=== PATIENT | female | born 1945 | race Caucasian/White ===

== ENCOUNTER 2016-05-24 09:19 | Outpatient (CLI) | payer MEDICARE, OTHER | END 2016-05-24 09:20 | disposition home or self-care (01) | DX: M35.3 Polymyalgia rheumatica (principal); Z79.01 Long term (current) use of anticoagulants ==

== ENCOUNTER 2016-06-19 15:10 | Outpatient (CLI) | payer MEDICARE, OTHER | END 2016-06-19 15:11 | disposition home or self-care (01) | DX: E87.6 Hypokalemia (principal) ==

== ENCOUNTER 2016-09-02 11:42 | Outpatient (CLI) | payer MEDICARE, OTHER | END 2016-09-02 11:43 | disposition home or self-care (01) | DX: M35.3 Polymyalgia rheumatica (principal); Z79.01 Long term (current) use of anticoagulants ==

== ENCOUNTER 2016-10-11 10:27 | Emergency (ER) | payer MEDICARE, OTHER ==
[2016-10-11 10:35] VITALS: BP 133/74
[2016-10-11 11:44] LABS: BASOPHILS % (AUTO) 0.4 %; EOSINOPHILS # (AUTO) 0.1 10^3/uL (0.0-0.7); EOSINOPHILS % (AUTO) 1.1 %; HCT - HEMATOCRIT 35.9 % (37.0-47.0); HGB - HEMOGLOBIN 11.8 g/dL (12.0-16.0); LYMPHOCYTES # (AUTO) 1.5 10^3/uL (1.5-3.5); LYMPHOCYTES % (AUTO) 19.8 %; MEAN CORPUSCULAR HEMOGLOBIN 28.1 pg (27.0-31.0); MEAN CORPUSCULAR HGB CONC 32.9 g/dL (32.0-36.0); MEAN CORPUSCULAR VOLUME 85.5 fL (81.0-99.0); MONOCYTES # (AUTO) 0.6 10^3/uL (0.0-1.0); MONOCYTES % (AUTO) 7.9 %; NEUTROPHILS # (AUTO) 5.4 10^3/uL (1.5-6.6); NEUTROPHILS % (AUTO) 70.8 %; UNCORRECTED WHITE BLOOD COUNT 7.7 x10^3/uL; WHITE BLOOD COUNT 7.7 x10^3/uL (4.8-10.8)
[2016-10-11 11:52] LABS: CALCIUM 9.9 mg/dL (8.5-10.3); CREATININE 1.6 mg/dL (0.4-1.0); POTASSIUM 3.4 mmol/L (3.5-5.0)
--- NOTE | 2016-10-11 11:59 | CT Preliminary Report ---
Exam: CT Head W/O IMPRESSION: Generalized age-related cortical atrophic changes without evidence of acute intracranial abnormality. [facility] SITE ID: [id number]
--- NOTE | 2016-10-11 12:02 | CT Report ---
EXAM: CT HEAD EXAM DATE: 10/11/2016 11:51 AM. CLINICAL HISTORY: Difficulty with speech and diffuse weakness. COMPARISON: None. TECHNIQUE: Multiaxial CT images were obtained from the foramen magnum to the vertex. IV contrast: Non e. Reformats: Coronal. In accordance with CT protocol optimization, one or more of the following dose reduction techniques w ere utilized for this exam: automated exposure control, adjustment of mA and/or KV based on patient s ize, or use of iterative reconstructive technique. FINDINGS: Parenchyma: No intraparenchymal hemorrhage. No evidence of mass, midline shift, or CT findings of acu te infarction. Gallegos-white differentiation is distinct. Extraaxial Spaces: Normal for age. No subdural or epidural collections identified. Ventricles: The ventricles and cortical sulci are enlarged, consistent with age-related tissue loss. Sinuses: Imaged paranasal sinuses, orbits, and mastoids show no significant abnormality. Bones: No evidence of fracture or calvarial defect. Other: Diffuse chronic microangiopathic white matter changes are evident. IMPRESSION: Generalized age-related cortical atrophic changes without evidence of acute intracranial abnormality. [facility] Referring Provider Line: [phone] SITE ID: [id number]
--- NOTE | 2016-10-11 12:05 | ED Physician Documentation ---
History of Present Illness - Stated complaint Stated Complaint: WEAKNESS - Chief complaint Chief Complaint: Neuro - Additonal information Additional information: hx from pt 71 female 5 days of sx started with severe upper mid abd pain and diarrhea after eating lx (her friend at same and got sick too) then states she had a psychedelic experience and saw geometric shapes coming out of her abdomen and was unable to speak clearly (per both slurred and word salad) no focal weakness the speech and hallucinations have cleared the abd pain persists but is improved no blood in diarrhea no NV now diffusely weak all over Review of Systems Constitutional: denies: Fever, Myalgias Throat: denies: Sore throat Cardiac: denies: Chest pain / pressure Respiratory: denies: Dyspnea GI: reports: Abdominal Pain, Diarrhea. 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: Endometriosis Psych: None Musculoskeletal: Osteoarthritis, Osteoporosis, Chronic back pain Other Past Medical History: bladder CA - Present Medications Home Medications: Ambulatory Orders Medication Instructions Recorded Confirmed Carvedilol 6.25 mg PO DAILY 04/02/15 04/02/15 Leucovorin Calcium 15 mg PO Q6HR #30 tablet 04/02/15 10/11/16 Levothyroxine [Synthroid] 25 mcg PO QDAC 04/02/15 04/02/15 Liothyronine [Cytomel] 5 mcg PO QDAC 04/02/15 10/11/16 Lisinopril 10 mg PO BID 04/02/15 04/02/15 Nifedipine 30 mg PO DAILY 04/02/15 04/02/15 Prednisone 04/02/15 04/02/15 Triamterene [Dyrenium] 50 mg PO DAILY 04/02/15 04/02/15 Warfarin [Coumadin] 1 mg PO 1400 04/02/15 04/02/15 - Allergies Allergies/Adverse Reactions: Allergies Allergy/AdvReac Type Severity Reaction Status Date / Time diltiazem Allergy Unknown Unknown Verified 10/11/16 10:36 - Social History Does the pt smoke?: No Smoking Status: Never smoker Does the pt have substance abuse?: No - POLST Patient has POLST: No PD ED PE NORMAL - Vitals Vital signs reviewed: Yes - General General: Alert and oriented X 3 - HEENT HEENT: PERRL - Neck Neck: Supple, no meningeal sign - Cardiac Cardiac: RRR - Respiratory Respiratory: No respiratory distress, Clear bilaterally - Abdomen Abdomen: Other (TTP upper abd without rebound or guarding) - Derm Derm: Normal color - Neuro Neuro: Alert and oriented X 3, forensic structural engineer 2-12 intact, No motor deficit, No sensory deficit, Normal speech, Other (NIHSS zero) Results - Vitals Vitals: Vital Signs - 24 hr 10/11/16 10:30 Temperature 35.9 C L Heart Rate 60 Respiratory 16 Rate Blood Pressure 133/74 H O2 Saturation 97 Oxygen O2 Source Room air - EKG (time done) 1214 Rate: Rate (enter#) (60 - paced) Rhythm: Atrial fibrillation (or flutter - hx a fib) [place]: Normal (paced at 60 ) - Labs Labs: Laboratory Tests 10/11/16 10/11/16 10/11/16 11:28 11:28 11:28 WBC 7.7 RBC 4.20 Hgb 11.8 L Hct 35.9 L MCV 85.5 MCH 28.1 MCHC 32.9 RDW 16.0 H Plt Count 216 MPV 10.0 Neut # 5.4 Lymph # 1.5 Rich # 0.6 Eos # 0.1 Baso # 0.0 Absolute Nucleated RBC 0.00 Nucleated RBCs 0.0 PT 20.8 H INR 1.8 H Sodium 141 Potassium 3.4 L Chloride 104 Carbon Dioxide 26 Anion Gap 11.0 BUN 40 H Creatinine 1.6 H Estimated GFR (MDRD) 32 L Glucose 109 H Calcium 9.9 Troponin I Urine Color Urine Clarity Urine pH Ur Specific [place] Urine Protein Urine Glucose (UA) Urine Ketones Urine Occult Blood Urine Nitrite Urine Bilirubin Urine Urobilinogen Ur Leukocyte Esterase Ur Microscopic Review Urine Culture Comments 10/11/16 10/11/16 11:28 11:55 WBC RBC Hgb Hct MCV MCH MCHC RDW Plt Count MPV Neut # Lymph # Rich # Eos # Baso # Absolute Nucleated RBC Nucleated RBCs PT INR Sodium Potassium Chloride Carbon Dioxide Anion Gap BUN Creatinine Estimated GFR (MDRD) Glucose Calcium Troponin I < 0.04 Urine Color YELLOW Urine Clarity CLEAR Urine pH 6.5 Ur Specific [place] 1.015 Urine Protein NEGATIVE Urine Glucose (UA) NEGATIVE Urine Ketones NEGATIVE Urine Occult Blood TRACE-INTA Urine Nitrite NEGATIVE Urine Bilirubin NEGATIVE Urine Urobilinogen 0.2 (NORMAL) Ur Leukocyte Esterase NEGATIVE Ur Microscopic Review NOT INDICATED Urine Culture Comments NOT INDICATED - Rads (name of study) CT abd pelvis Radiology: See rad report (no acute process) CTH Radiology: See rad report (no acute) PD MEDICAL DECISION MAKING - ED course ED course: 71 f with very atypical neuro sx - not class or typical or a TIA - and assocuated with abd pain and diarrhea after eating lox CTH neg a fib but with PPM and INR 1.8 so CVA less likely nl neuro exam now given atypical neuro sx of psychedelic hallucinations 5 d ago do not feel emergent echo and carotid imaging and admit for serial neuro exams is necessary at this time - feel reasonable to dc on her Coumadin to fup with her PMD for a recheck and further work up as an ouptpt if PMD feels appropriate re abd pain, CT abd pelvis neg and pt had a firm BM in the ER Departure - Departure Disposition: 01 Home, Self Care Clinical Impression: Neurological deficit, transient Abdominal pain Qualifiers: Abdominal location: upper abdomen, unspecified Qualified Code(s): R10.10 - Upper abdominal pain, unspecified Condition: Good Instructions: ED Abdominal Pain Unkn Cause Follow-Up: Sanjeev Coleman MD [Primary Care Provider] - Comments: All your tests came back fine The CT of your head did not show any bleeding tumors or stroke The CT of your abdomen did not show any infections, stones or perforations And your blood work came back mostly all fine except that you kidney function has worsened since the last time it was checked - please follow up with your PMD about that. Since the speech problems and hallucinations have resolved and your abdominal pain and diarrhea are improving, i think it is OK for you to go home and to follow up with your PMD for a recheck and consideration of an ultrasound or your heart and carotid arteries as an outpatient Please return if worse in any way And please follow up with your PMD to recheck your blood pressure - it was elevated today
[2016-10-11 12:17] LABS: BILIRUBIN,URINE NEGATIVE (NEGATIVE); PH,URINE 6.5 PH (5.0-7.5)
[2016-10-11 12:21] LABS: UA CHARGE (STRIP ONLY) YES; UR CULTURE IF IND NOT INDICATED
[2016-10-11 12:21] LABS: INR 1.8 (0.8-1.2); PT - PROTHROMBIN TIME 20.8 secs (9.9-12.6)
--- NOTE | 2016-10-11 12:50 | CT Preliminary Report ---
Exam: CT Abdomen/Pelvis W/O IMPRESSION: 1. No bowel obstruction or inflammatory process associated with the bowel. 2. No free air or fluid in the abdomen or pelvis. 3. The appendix images normally. [facility] SITE ID: [id number]
--- NOTE | 2016-10-11 12:53 | CT Report ---
EXAM: CT ABDOMEN AND PELVIS (CT KUB) EXAM DATE: 10/11/2016 12:32 PM. CLINICAL HISTORY: Severe abd pain. COMPARISONS: None. TECHNIQUE: Routine axial helical CT imaging was performed through the abdomen and pelvis without IV c ontrast. Reconstructions: Coronal and sagittal. In accordance with CT protocol optimization, one or more of the following dose reduction techniques w ere utilized for this exam: automated exposure control, adjustment of mA and/or KV based on patient s ize, or use of iterative reconstructive technique. FINDINGS: Lung Bases: Unremarkable. Right Kidney/Ureter: No stones, hydronephrosis, or hydroureter. No perinephric fat stranding. Left Kidney/Ureter: No stones, hydronephrosis, or hydroureter. No perinephric fat stranding. Other Solid Organs: Noncontrast images of the solid organs are grossly unremarkable. Gallbladder/Bile Ducts: Unremarkable. Peritoneal Cavity: No bowel obstruction. No inflammatory process associated with the bowel. The appen luciana images normally. No free air or fluid in the abdomen or pelvis. Pelvic Organs: No bladder stones or wall thickening. Noncontrast images of the visualized pelvic orga ns are unremarkable. Vasculature: Unremarkable. Other: Compression deformities of the L1, L3 and L4 vertebral bodies appear chronic in nature. Degene rative disk disease throughout the lumbar spine. IMPRESSION: 1. No bowel obstruction or inflammatory process associated with the bowel. 2. No free air or fluid in the abdomen or pelvis. 3. The appendix images normally. [facility] Referring Provider Line: [phone] SITE ID: [id number]
== END 2016-10-11 14:33 | disposition home or self-care (01) ==
LOC: ED 10:27
DX: R29.818 Other symptoms and signs involving the nervous system (principal); R10.11 Right upper quadrant pain; I48.91 Unspecified atrial fibrillation; Z79.01 Long term (current) use of anticoagulants; R94.31 Abnormal electrocardiogram [ECG] [EKG]; I10 Essential (primary) hypertension; G47.30 Sleep apnea, unspecified; E03.9 Hypothyroidism, unspecified; M19.90 Unspecified osteoarthritis, unspecified site; Z85.51 Personal history of malignant neoplasm of bladder
CPT/HCPCS: 36415; 70450; 74176; 80048; 81001; 81003; 84484; 85025; 85610; 87045; 87046; 87086; 93005; 93010; 99283; 99284

== ENCOUNTER 2016-11-01 14:15 | Outpatient (CLI) | payer MEDICARE, OTHER ==
[2016-11-01 15:02] LABS: BUN - BLOOD UREA NITROGEN 33 mg/dL (6-20); CALCIUM 9.8 mg/dL (8.5-10.3); CARBON DIOXIDE - CO2 28 mmol/L (21-32); CHLORIDE 102 mmol/L (101-111); CREATININE 1.3 mg/dL (0.4-1.0); GFR - MDRD 40 (>89); GLUCOSE 103 mg/dL (70-100); POTASSIUM 3.3 mmol/L (3.5-5.0); SODIUM 139 mmol/L (135-145)
== END 2016-11-01 14:16 | disposition home or self-care (01) ==
LOC: LAB 14:15
PROVIDERS: ATTEND Family Medicine
DX: M35.3 Polymyalgia rheumatica (principal)
CPT/HCPCS: 36415; 80048; 85610; 85651; 86140

== ENCOUNTER 2016-11-25 11:05 | Outpatient (CLI) | payer MEDICARE, OTHER | END 2016-11-25 11:06 | disposition home or self-care (01) | LOC: LAB 11:05 | PROVIDERS: ATTEND Family Medicine | DX: Z79.01 Long term (current) use of anticoagulants (principal) | CPT/HCPCS: 85610 ==

== ENCOUNTER 2016-12-23 09:28 | Outpatient (CLI) | payer MEDICARE, OTHER ==
[2016-12-23 10:27] LABS: INR 1.3 (0.8-1.2); PT - PROTHROMBIN TIME 14.3 secs (9.9-12.6)
[2016-12-23 10:36] LABS: BUN - BLOOD UREA NITROGEN 32 mg/dL (6-20); CALCIUM 9.9 mg/dL (8.5-10.3); CARBON DIOXIDE - CO2 30 mmol/L (21-32); CHLORIDE 103 mmol/L (101-111); CREATININE 1.3 mg/dL (0.4-1.0); GFR - MDRD 40 (>89); GLUCOSE 92 mg/dL (70-100); POTASSIUM 3.2 mmol/L (3.5-5.0); SODIUM 141 mmol/L (135-145)
== END 2016-12-23 09:29 | disposition home or self-care (01) ==
LOC: LAB 09:28
PROVIDERS: ATTEND Internal Medicine Rheumatology
DX: Z79.01 Long term (current) use of anticoagulants (principal); M35.3 Polymyalgia rheumatica
CPT/HCPCS: 36415; 80048; 85610; 85651; 86140

== ENCOUNTER 2017-02-14 08:53 | Outpatient (CLI) | payer MEDICARE, OTHER ==
[2017-02-14 09:44] LABS: BASOPHILS # (AUTO) 0.1 10^3/uL (0.0-0.1); BASOPHILS % (AUTO) 1.1 %; EOSINOPHILS # (AUTO) 0.2 10^3/uL (0.0-0.7); EOSINOPHILS % (AUTO) 2.4 %; HGB - HEMOGLOBIN 12.3 g/dL (12.0-16.0); LYMPHOCYTES # (AUTO) 1.9 10^3/uL (1.5-3.5); LYMPHOCYTES % (AUTO) 28.9 %; MEAN CORPUSCULAR HGB CONC 32.3 g/dL (32.0-36.0); MEAN CORPUSCULAR VOLUME 86.5 fL (81.0-99.0); MEAN PLATELET VOLUME 9.8 fL (7.9-10.8); MONOCYTES # (AUTO) 0.8 10^3/uL (0.0-1.0); MONOCYTES % (AUTO) 12.8 %; NEUTROPHILS # (AUTO) 3.5 10^3/uL (1.5-6.6); NEUTROPHILS % (AUTO) 54.8 %; RED BLOOD COUNT 4.39 10^6/uL (4.20-5.40); RED CELL DISTRIBUTION WIDTH 15.7 % (12.0-15.0); UNCORRECTED WHITE BLOOD COUNT 6.4 x10^3/uL; WHITE BLOOD COUNT 6.4 x10^3/uL (4.8-10.8)
[2017-02-14 09:54] LABS: CALCIUM 9.2 mg/dL (8.5-10.3); CREATININE 1.3 mg/dL (0.4-1.0); PHOSPHORUS 2.5 mg/dL (2.5-4.6); POTASSIUM 3.3 mmol/L (3.5-5.0)
== END 2017-02-14 08:54 | disposition home or self-care (01) ==
LOC: RT 08:53
PROVIDERS: ATTEND Urology
DX: Z01.818 Encounter for other preprocedural examination (principal); C67.9 Malignant neoplasm of bladder, unspecified; N39.0 Urinary tract infection, site not specified
CPT/HCPCS: 36415; 80069; 85025; 87086; 93005

== ENCOUNTER 2017-03-27 10:51 | Outpatient (CLI) | payer MEDICARE, OTHER ==
[2017-03-27 11:33] LABS: BUN - BLOOD UREA NITROGEN 30 mg/dL (6-20); CALCIUM 9.2 mg/dL (8.5-10.3); CARBON DIOXIDE - CO2 29 mmol/L (21-32); CHLORIDE 104 mmol/L (101-111); CREATININE 1.2 mg/dL (0.4-1.0); GFR - MDRD 44 (>89); GLUCOSE 92 mg/dL (70-100); POTASSIUM 3.1 mmol/L (3.5-5.0); SODIUM 141 mmol/L (135-145)
== END 2017-03-27 10:52 | disposition home or self-care (01) ==
LOC: LAB 10:51
PROVIDERS: ATTEND Family Medicine
DX: Z79.01 Long term (current) use of anticoagulants (principal); M35.3 Polymyalgia rheumatica
CPT/HCPCS: 36415; 80048; 85610; 85651; 86140

== ENCOUNTER 2017-08-07 10:34 | Outpatient (CLI) | payer MEDICARE, OTHER | END 2017-08-07 10:35 | disposition home or self-care (01) | LOC: LAB 10:34 | PROVIDERS: ATTEND Family Medicine | DX: Z79.01 Long term (current) use of anticoagulants (principal) | CPT/HCPCS: 85610 ==

== ENCOUNTER 2017-08-14 09:27 | Outpatient (CLI) | payer MEDICARE, OTHER ==
[2017-08-14 10:02] LABS: BASOPHILS % (AUTO) 0.6 %; EOSINOPHILS # (AUTO) 0.2 10^3/uL (0.0-0.7); EOSINOPHILS % (AUTO) 2.3 %; HGB - HEMOGLOBIN 11.3 g/dL (12.0-16.0); LYMPHOCYTES # (AUTO) 1.9 10^3/uL (1.5-3.5); LYMPHOCYTES % (AUTO) 28.9 %; MEAN CORPUSCULAR HEMOGLOBIN 28.1 pg (27.0-31.0); MEAN CORPUSCULAR HGB CONC 32.6 g/dL (32.0-36.0); MEAN PLATELET VOLUME 9.8 fL (7.9-10.8); MONOCYTES # (AUTO) 0.8 10^3/uL (0.0-1.0); MONOCYTES % (AUTO) 12.4 %; NEUTROPHILS # (AUTO) 3.7 10^3/uL (1.5-6.6); NEUTROPHILS % (AUTO) 55.8 %; PLT - PLATELET COUNT 188 10^3/uL (130-450); RED BLOOD COUNT 4.04 10^6/uL (4.20-5.40); RED CELL DISTRIBUTION WIDTH 16.9 % (12.0-15.0); WHITE BLOOD COUNT 6.6 x10^3/uL (4.8-10.8)
[2017-08-14 10:19] LABS: ALBUMIN 3.5 g/dL (3.2-5.5); ALKALINE PHOSPHATASE 46 IU/L (42-121); ALT ALANINE AMINOTRANSFERASE 18 IU/L (10-60); AST ASPARTATE AMINOTRANSFERASE 21 IU/L (10-42); BILIRUBIN,TOTAL 0.5 mg/dL (0.2-1.0); BUN - BLOOD UREA NITROGEN 28 mg/dL (6-20); CALCIUM 9.6 mg/dL (8.5-10.3); CARBON DIOXIDE - CO2 28 mmol/L (21-32); CHLORIDE 104 mmol/L (101-111); CHOLESTEROL 191 mg/dL; CREATININE 1.3 mg/dL (0.4-1.0); GFR - MDRD 40 (>89); GLUCOSE 94 mg/dL (70-100); HDL CHOLESTEROL 48 mg/dL; LDL CHOLESTEROL,CALCULATED 119 mg/dL; LDL/HDL RATIO 2.5 (<4.4); SODIUM 142 mmol/L (135-145); TOTAL PROTEIN 6.9 g/dL (6.7-8.2); VLDL CHOLESTEROL 24 mg/dL
[2017-08-14 10:53] LABS: THYROID STIMULATING HORMONE < 0.08 uIU/mL (0.34-5.60)
[2017-08-14 11:27] LABS: FREE T4 (FREE THYROXINE) 1.56 ng/dL (0.58-1.64)
== END 2017-08-14 09:28 | disposition home or self-care (01) ==
LOC: LAB 09:27
PROVIDERS: ATTEND Internal Medicine Cardiovascular Disease
DX: M35.3 Polymyalgia rheumatica (principal); R00.1 Bradycardia, unspecified; E78.2 Mixed hyperlipidemia
CPT/HCPCS: 36415; 80048; 80053; 80061; 83721; 84439; 84443; 85025; 85610; 85651; 86140

== ENCOUNTER 2017-09-29 09:11 | Outpatient (CLI) | payer MEDICARE, OTHER ==
[2017-09-29 10:07] LABS: BUN - BLOOD UREA NITROGEN 35 mg/dL (6-20); CARBON DIOXIDE - CO2 26 mmol/L (21-32); CHLORIDE 105 mmol/L (101-111); CREATININE 1.4 mg/dL (0.4-1.0); GFR - MDRD 37 (>89); GLUCOSE 87 mg/dL (70-100); SODIUM 137 mmol/L (135-145)
[2017-09-29 10:12] LABS: CRP - C-REACTIVE PROTEIN < 1.0 mg/dL (0-1.0)
== END 2017-09-29 09:12 | disposition home or self-care (01) ==
LOC: LAB 09:11
PROVIDERS: ATTEND Internal Medicine Rheumatology
DX: Z79.01 Long term (current) use of anticoagulants (principal); M35.3 Polymyalgia rheumatica
CPT/HCPCS: 36415; 80048; 85610; 85651; 86140

== ENCOUNTER 2017-10-20 12:01 | Outpatient (CLI) | END 2017-10-20 12:02 | disposition home or self-care (01) ==

== ENCOUNTER 2018-02-12 09:40 | Outpatient (CLI) | payer MEDICARE, OTHER ==
[2018-02-12 10:56] LABS: BUN - BLOOD UREA NITROGEN 35 mg/dL (6-20); CALCIUM 9.5 mg/dL (8.5-10.3); CARBON DIOXIDE - CO2 24 mmol/L (21-32); CHLORIDE 108 mmol/L (101-111); CREATININE 1.3 mg/dL (0.4-1.0); GFR - MDRD 40 (>89); GLUCOSE 95 mg/dL (70-100); SODIUM 141 mmol/L (135-145)
[2018-02-12 11:08] LABS: CRP - C-REACTIVE PROTEIN < 1.0 mg/dL (0-1.0)
== END 2018-02-12 09:41 | disposition home or self-care (01) ==
LOC: LAB 09:40
PROVIDERS: ATTEND Internal Medicine Rheumatology
DX: M35.3 Polymyalgia rheumatica (principal); M81.0 Age-related osteoporosis without current pathological fracture; Z79.01 Long term (current) use of anticoagulants; I48.91 Unspecified atrial fibrillation
CPT/HCPCS: 36415; 80048; 82306; 85610; 85651; 86140

== ENCOUNTER 2018-03-12 14:24 | Outpatient (CLI) | payer MEDICARE, OTHER ==
[2018-03-12 14:56] LABS: INR 2.6 (0.8-1.2); PT - PROTHROMBIN TIME 28.7 secs (9.9-12.6)
[2018-03-12 15:05] LABS: CALCIUM 8.6 mg/dL (8.5-10.3); CREATININE 1.5 mg/dL (0.4-1.0)
== END 2018-03-12 14:25 | disposition home or self-care (01) ==
LOC: LAB 14:24
PROVIDERS: ATTEND Internal Medicine Rheumatology
DX: I48.91 Unspecified atrial fibrillation (principal); Z79.01 Long term (current) use of anticoagulants
CPT/HCPCS: 36415; 80048; 85610; 85651; 86140

== ENCOUNTER 2018-10-16 08:54 | Outpatient (CLI) | payer MEDICARE, OTHER | END 2018-10-16 08:55 | disposition home or self-care (01) | LOC: LAB 08:54 | PROVIDERS: ATTEND Family Medicine | DX: Z79.01 Long term (current) use of anticoagulants (principal); I48.91 Unspecified atrial fibrillation | CPT/HCPCS: 85610 ==

== ENCOUNTER 2019-01-07 11:54 | Outpatient (CLI) | payer MEDICARE, OTHER | END 2019-01-07 11:55 | disposition home or self-care (01) | LOC: DI 11:54 | PROVIDERS: ATTEND Nurse Practitioner Adult Health | DX: I48.2 Chronic atrial fibrillation (principal); R06.02 Shortness of breath; I51.7 Cardiomegaly | CPT/HCPCS: 93306 ==

== ENCOUNTER 2019-01-15 13:54 | Outpatient (CLI) | payer MEDICARE, OTHER ==
[2019-01-15 15:17] LABS: HGB - HEMOGLOBIN 11.8 g/dL (12.0-16.0); MEAN CORPUSCULAR HGB CONC 31.5 g/dL (32.0-36.0); MEAN CORPUSCULAR VOLUME 88.9 fL (81.0-99.0); MEAN PLATELET VOLUME 11.8 fL (7.9-10.8); RED BLOOD COUNT 4.22 10^6/uL (4.20-5.40); RED CELL DISTRIBUTION WIDTH 15.9 % (12.0-15.0); WHITE BLOOD COUNT 7.5 x10^3/uL (4.8-10.8)
[2019-01-15 15:23] LABS: ALBUMIN 3.8 g/dL (3.2-5.5); CALCIUM 9.3 mg/dL (8.5-10.3); CREATININE 1.7 mg/dL (0.4-1.0); PHOSPHORUS 3.6 mg/dL (2.5-4.6); URIC ACID 7.7 mg/dL (2.6-7.2)
[2019-01-15 15:28] LABS: BUN - BLOOD UREA NITROGEN 51 mg/dL (6-20); CALCIUM 9.3 mg/dL (8.5-10.3); CARBON DIOXIDE - CO2 23 mmol/L (21-32); CHLORIDE 109 mmol/L (101-111); CREATININE 1.8 mg/dL (0.4-1.0); GFR - MDRD 27 (>89); GLUCOSE 99 mg/dL (70-100); SODIUM 141 mmol/L (135-145)
[2019-01-15 15:30] LABS: CRP - C-REACTIVE PROTEIN < 1.0 mg/dL (0-1.0)
[2019-01-20 12:11] LABS: ANA SCREEN NEGATIVE (NEGATIVE)
== END 2019-01-15 13:55 | disposition home or self-care (01) ==
LOC: LAB 13:54
PROVIDERS: ATTEND Internal Medicine Nephrology
DX: N17.9 Acute kidney failure, unspecified (principal); N18.3 Chronic kidney disease, stage 3 (moderate); R31.9 Hematuria, unspecified; M35.3 Polymyalgia rheumatica; I48.91 Unspecified atrial fibrillation; Z79.01 Long term (current) use of anticoagulants
CPT/HCPCS: 36415; 80048; 80069; 81599; 83970; 84100; 84550; 85027; 85610; 85651; 86038; 86140

== ENCOUNTER 2019-01-23 16:10 | Outpatient (CLI) | payer MEDICARE, OTHER ==
--- NOTE | 2019-01-25 09:37 | Ultrasound Report ---
Reason: ACUTE KIDNEY FAILURE, CKD STAGE III Procedure Date: 01/23/2019 Accession Number: [id number] / [id number] Procedure: US - Retroperitoneal CPT Code: FULL RESULT: EXAM: RENAL ULTRASOUND EXAM DATE: 01/23/2019 05:22 PM. CLINICAL HISTORY: ACUTE KIDNEY FAILURE, CKD STAGE III. COMPARISON: None. TECHNIQUE: Real-time scanning was performed with static images obtained. FINDINGS: Right Kidney: 9.4 x 5.3 x 3.6 cm. Slightly echogenic renal parenchyma. No suspicious mass or hydronephrosis. There is an 8 mm maximum diameter central right renal cyst of no significance. Left Kidney: 10.0 x 6.0 x 5.2 cm. Slightly echogenic renal parenchyma. No suspicious mass or hydronephrosis. There is a 7 mm maximal diameter lateral renal cyst of no clinical significance. Bladder: Bilateral jets seen. The prevoid bladder volume was 98.3 cc. The postvoid bladder volume was 3.6 cc. Other: There is a cluster of benign-appearing inferior right hepatic cysts of no clinical significance with aggregate maximal diameter of 2.2 cm. IMPRESSION: 1. Slightly echogenic renal parenchyma without significant atrophy, suspicious mass, or hydronephrosis. 2. Unremarkable bladder. [facility]
== END 2019-01-23 16:11 | disposition home or self-care (01) ==
LOC: DI 16:10
PROVIDERS: ATTEND Internal Medicine Nephrology
DX: N17.9 Acute kidney failure, unspecified (principal); N18.3 Chronic kidney disease, stage 3 (moderate)
CPT/HCPCS: 76770

== ENCOUNTER 2019-02-05 13:34 | Outpatient (CLI) | payer MEDICARE, OTHER | END 2019-02-05 13:35 | disposition home or self-care (01) | LOC: LAB 13:34 | PROVIDERS: ATTEND Family Medicine | DX: Z79.01 Long term (current) use of anticoagulants (principal); I48.91 Unspecified atrial fibrillation | CPT/HCPCS: 85610 ==

== ENCOUNTER 2019-02-25 11:33 | Outpatient (CLI) | payer MEDICARE, OTHER | END 2019-02-25 11:34 | disposition home or self-care (01) | LOC: LAB 11:33 | PROVIDERS: ATTEND Family Medicine | DX: Z79.01 Long term (current) use of anticoagulants (principal); I48.91 Unspecified atrial fibrillation | CPT/HCPCS: 85610 ==

== ENCOUNTER 2019-08-23 11:16 | Outpatient (CLI) | payer MEDICARE, OTHER ==
[2019-08-23 11:39] LABS: INR 2.3 (0.8-1.2); PT - PROTHROMBIN TIME 25.5 secs (9.9-12.6)
[2019-08-23 11:51] LABS: CALCIUM 8.8 mg/dL (8.5-10.3); CREATININE 1.2 mg/dL (0.4-1.0)
== END 2019-08-23 11:17 | disposition home or self-care (01) ==
LOC: LAB 11:16
PROVIDERS: ATTEND Internal Medicine
DX: I48.91 Unspecified atrial fibrillation (principal); M35.3 Polymyalgia rheumatica
CPT/HCPCS: 36415; 80048; 85610; 85651; 86140

== ENCOUNTER 2020-01-07 11:53 | Outpatient (CLI) | payer MEDICARE, OTHER | END 2020-01-07 11:54 | disposition home or self-care (01) | LOC: LAB 11:53 | PROVIDERS: ATTEND Internal Medicine | DX: I48.91 Unspecified atrial fibrillation (principal) | CPT/HCPCS: 85610 ==

== ENCOUNTER 2020-01-20 09:52 | Outpatient (CLI) | payer MEDICARE, OTHER ==
--- NOTE | 2020-01-20 11:19 | SLEEP CARE CONSULTATION ---
Information from patient questionnaire entered by Jennifer White. I have reviewed and concur with the information entered by Jennifer White. This document represents the service I personally performed and the decisions made by me, Manisha Bess ARNP. History of Present Illness Service Date and Time: 01/20/2020 09 Reason for Visit: New patient, Previously diagnosed sleep apnea, sleep apnea on CPAP therapy Chief Complaint: reports: Observed pauses in breathing, Fatigue. denies: Unrefreshed sleep, Snoring Date of Onset: since 2011 Usual bedtime: 10:30 pm Time it takes to fall asleep: between 15-60 minutes Snores at night: Yes Observed to quit breathing while asleep: Yes Sleeps alone due to snoring: No Number of times waking at night: 2-3 Reasons for waking at night: reports: Bathroom (mostly). denies: Choking, Snoring, Gasping for air Toss, Turn, or Twitch while sleeping: Yes (a little) Recalls having dreams: Yes Usually gets out of bed at: 7 am Feels refreshed in the morning: Yes (half the time) Morning headache: No Sleepy or fatigued during the day: Yes Ever fallen asleep while driving: No Takes day naps: No Dreams during day naps: No Prior sleep studies: Yes Year and Where: around 2011 - [facility] in [place], [place] Additional HPI information: ALAN FELIZ was diagnosed to have severe, AHI 49.5 with a farrukh oxygen saturation of 73%, obstructive sleep apnea-hypopnea syndrome who comes in today with spouse to establish care she is on CPAP therapy. - Parasomnia Symptoms Ever been unable to move upon waking from sleep: No Walks in sleep: No Talks in sleep: Yes (occasionally) Ever acted out dreams in sleep: No Ever felt weak in the knees when startled or emotional: No Bothered by creepy, crawly, restless sensations in legs: No Problems with memory or concentration: Yes CPAP Compliance Data - Data Reviewed with Patient Average duration of nightly device use: 5 hours 46 minutes Compliance rate %: 7 Current pressure setting (cmH2O): 16-20 Average residual AHI: 18.8 Central apnea: 5.0 Obstructive apnea: 5.4 Average large leak: 24.7 Compliance data discussion: Using [facility], cannot get supplies. She uses a full face mask. She has not been able to change her mask cushion for at least a year. She may have an old mask if needed. Subjective Missed days of use due to: reports: mask issues Patient concerns: reports: mask discomfort (she will take it off due to too warm and mask leak noise), mask leak noise, other (headgear is too tight or too loose). denies: aerophagia, air blowing in eyes, condensation in mask/hose, nasal congestion, dry mouth, nose, throat, epistaxis Observed to snore while using device: No Current pressure setting perceived as: comfortable On therapy, patient: reports: sleeping better (when she uses the CPAP), awaken ing more refreshed. denies: being more awake and alert during the day, more rested overall, drowsiness while driving Initial [place] Sleepiness Scale score: 4 (in 2019) Past Medical History Past Medical History: reports: Hypertension, Arthritis, Arrythmia (Atrial fibrillation on warfarin), Hypothyroidism, Fibromyalgia, Attention deficit, Other (hammer toes (can't be treated)). 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 Patient is and lives in [place]. Have you smoked in the past 12 months: No Alcohol use: Yes Alcohol amount and frequency: very infrequently Caffeine use: Yes Caffeine amount and frequency: coffee every morning Family History Family history of sleep disordered breathing: No Family Hx Sleep Apnea: Mother: Snoring Allergies and Home Medications Drug allergies reviewed: Yes (diltiazem) Home medication list reviewed: Yes (will have her bring in next visit) Review of Systems Weight loss over past 5 years: 5 Cardiovascular: reports: high blood pressure, irregular heart rate or pulse. denies: palpitations, chest pain, leg or foot swelling Respiratory: reports: shortness of breath Gastrointestinal: reports: diarrhea (sometimes). denies: heartburn, difficulty swallowing Neurological: denies: headaches (hx of severe migraines, not much anymore), seizure, head trauma, speech dysfunction, gait or balance problems, fainting or unconsciousness Psychiatric: denies: Attention Deficit Hyperactivity, anxiety, depression, mood disorder, claustrophobia Ear/Nose/Throat: reports: tonsillectomy. denies: nasal congestion, sinus problems, nose bleeds, dry mouth/throat, injury to nose, wisdom teeth removed Endocrine: reports: thyroid disease, sluggishness, other (take thyroid medication) Musculoskeletal: reports: joint pain, back pain Physical Exam Blood Pressure: 140/75 Cuff size: regular Heart Rate: 60 O2 Saturation: 97 Height: 4 ft 9 in Weight: 162 lb Body Mass Index: 35.0 BMI Classification: Obese Neck circumference: 14.2 (inches) HEENT: No craniofacial malformation Nostrils: patent to airflow Turbinates: normal Septum: midline Mouth and throat: narrow oropharynx Soft palate: normal Hard palate: normal Uvula: normal Uvula visualization: 50% Mallampati Class II Tongue: normal in size Tonsils: absent bilaterally Chin and jaw: normal size and position Neck: normal w/o lymphadenopathy or thyromegaly Heart: regular rate and rhythm Lungs: clear bilaterally Impression and Plan 1. Obstructive Sleep Apnea-Hypopnea Syndrome, severe, with poor treatment compliance and poor apnea control. On CPAP therapy, there is improved sleep quality and feels more rested overall. Patient has not been using CPAP due to mask leak noise and mask being uncomfortable. She states sometimes she just gets very hot in the mask and takes it off. I advised her to reduce the temperature in her sleeping room. She was also advised that she can adjust the heated hose or humidity to make the temperature more comfortable. She also needs a new mask and headgear since she thinks it has been over a year since she received new supplies. She was also advised that mask leaks can be reduced by washing mask daily and changing mask cushions more frequently to improve mask seal and comfort. Patient unable to get supplies since DME supplier no longer able to get her supplies. For patient supply concerns another DME can be used. I will have my coordinator of health services inform of DME options. A DWO prescription will then be made. Patient advised to contact this office if further supply problems. Patient's apnea severity and rationale for treatment to reduce apnea, improve sleep quality and reduce cardiovascular and cerebrovascular events was reviewed. I also reviewed the benefit of consistent device use of CPAP for hypertension, cardiac disease, and arrhythmia. Continue auto CPAP pressure at 16-20 cm H2O. Notify me if snoring with the mask or feeling that the pressure is too much or too little. Attempt to lose weight. Transfer DME and update supplies Return for follow-up in 1-2 months, or sooner if concerns arise. Time Spent with Patient (minutes): 40
[2020-01-20 11:20] VITALS: BP 140/75
== END 2020-01-20 09:53 | disposition home or self-care (01) ==
LOC: SC 09:52
PROVIDERS: ATTEND Nurse Practitioner Family
DX: G47.33 Obstructive sleep apnea (adult) (pediatric) (principal); E66.9 Obesity, unspecified; Z68.35 Body mass index [BMI] 35.0-35.9, adult
CPT/HCPCS: 99204; G0463; 99212

== ENCOUNTER 2020-02-01 10:20 | Outpatient (CLI) | payer MEDICARE, OTHER | END 2020-02-01 10:21 | disposition home or self-care (01) | LOC: DI 10:20 | PROVIDERS: ATTEND Nurse Practitioner Adult Health | DX: I51.7 Cardiomegaly (principal); I48.91 Unspecified atrial fibrillation | CPT/HCPCS: 93306 ==

== ENCOUNTER 2020-02-10 11:54 | Outpatient (CLI) | payer MEDICARE, OTHER ==
[2020-02-10 12:32] LABS: BASOPHILS % (AUTO) 0.4 %; EOSINOPHILS % (AUTO) 0.4 %; HGB - HEMOGLOBIN 12.6 g/dL (12.0-16.0); MEAN CORPUSCULAR HEMOGLOBIN 28.7 pg (27.0-31.0); MEAN CORPUSCULAR HGB CONC 31.7 g/dL (32.0-36.0); MEAN CORPUSCULAR VOLUME 90.7 fL (81.0-99.0); MEAN PLATELET VOLUME 11.2 fL (7.9-10.8); MONOCYTES % (AUTO) 11.2 %; NEUTROPHILS # (AUTO) 5.9 10^3/uL (1.5-6.6); NEUTROPHILS % (AUTO) 65.7 %; PLT - PLATELET COUNT 245 10^3/uL (130-450); RED BLOOD COUNT 4.39 10^6/uL (4.20-5.40); RED CELL DISTRIBUTION WIDTH 16.7 % (12.0-15.0); WHITE BLOOD COUNT 9.1 x10^3/uL (4.8-10.8)
[2020-02-10 12:39] LABS: INR 1.5 (0.8-1.2); PT - PROTHROMBIN TIME 15.8 secs (9.9-12.6)
[2020-02-10 12:44] LABS: GLUCOSE, URINE (UA) NEGATIVE (NEGATIVE); KETONES,URINE (UA) 15 mg/dL (NEGATIVE); LEUKOCYTE ESTERASE, URINE TRACE (NEGATIVE); NITRITE,URINE NEGATIVE (NEGATIVE); OCCULT BLOOD,URINE NEGATIVE (NEGATIVE); PROTEIN,URINE 30 mg/dL (NEGATIVE); UROBILINOGEN,URINE 1 (NORMAL) E.U./dL (NORMAL)
[2020-02-10 12:48] LABS: ALBUMIN 3.8 g/dL (3.2-5.5); CALCIUM 9.4 mg/dL (8.5-10.3); CREATININE 1.3 mg/dL (0.4-1.0); PHOSPHORUS 2.4 mg/dL (2.5-4.6); URIC ACID 6.3 mg/dL (2.6-7.2)
[2020-02-10 12:52] LABS: CALCIUM 9.4 mg/dL (8.5-10.3); CHOL/HDL RATIO 3.5 (<4.4); CHOLESTEROL 214 mg/dL; CREATININE 1.3 mg/dL (0.4-1.0); CRP - C-REACTIVE PROTEIN 8.3 mg/dL (0-1.0); HDL CHOLESTEROL 61 mg/dL; LDL CHOLESTEROL,CALCULATED 136 mg/dL; LDL/HDL RATIO 2.2 (<4.4); VLDL CHOLESTEROL 17 mg/dL
[2020-02-10 12:58] LABS: BACTERIA,URINE Few /HPF (None Seen); BILIRUBIN,URINE NEGATIVE (NEGATIVE); CASTS, URINE 26-50 Hyaline Casts /LPF; CLARITY,URINE CLEAR (CLEAR); ICTOTEST,URINE NEGATIVE; RBC,URINE None Seen /HPF (0-5); SQUAMOUS EPITHELIAL CELL,UR FEW Squamous (<= Few)
[2020-02-10 13:44] LABS: CREATININE,URINE 553.3 mg/dL
== END 2020-02-10 11:55 | disposition home or self-care (01) ==
LOC: LAB 11:54
PROVIDERS: ATTEND Internal Medicine Nephrology
DX: E78.2 Mixed hyperlipidemia (principal); I12.9 Hypertensive chronic kidney disease with stage 1 through stage 4 chronic kidney disease, or unspecified chronic kidney disease; N18.30 Chronic kidney disease, stage 3 unspecified; I48.20 Chronic atrial fibrillation, unspecified; M35.3 Polymyalgia rheumatica
CPT/HCPCS: 36415; 80048; 80061; 80069; 81001; 82570; 83721; 83970; 84156; 84443; 84550; 85025; 85610; 85651; 86140; 87086

== ENCOUNTER 2020-03-28 08:56 | Outpatient (CLI) | payer MEDICARE, OTHER ==
[2020-03-28 09:23] LABS: BASOPHILS # (AUTO) 0.1 10^3/uL (0.0-0.1); BASOPHILS % (AUTO) 0.7 %; EOSINOPHILS # (AUTO) 0.1 10^3/uL (0.0-0.7); EOSINOPHILS % (AUTO) 1.8 %; HGB - HEMOGLOBIN 13.6 g/dL (12.0-16.0); LYMPHOCYTES # (AUTO) 2.1 10^3/uL (1.5-3.5); LYMPHOCYTES % (AUTO) 28.2 %; MEAN CORPUSCULAR HEMOGLOBIN 28.6 pg (27.0-31.0); MEAN CORPUSCULAR VOLUME 92.2 fL (81.0-99.0); MONOCYTES # (AUTO) 0.8 10^3/uL (0.0-1.0); MONOCYTES % (AUTO) 10.3 %; NEUTROPHILS # (AUTO) 4.3 10^3/uL (1.5-6.6); NEUTROPHILS % (AUTO) 58.6 %; PLT - PLATELET COUNT 239 10^3/uL (130-450); RED BLOOD COUNT 4.76 10^6/uL (4.20-5.40); RED CELL DISTRIBUTION WIDTH 16.5 % (12.0-15.0); WHITE BLOOD COUNT 7.4 x10^3/uL (4.8-10.8)
[2020-03-28 09:39] LABS: MAGNESIUM 1.9 mg/dL (1.7-2.8); PHOSPHORUS 2.9 mg/dL (2.5-4.6); URIC ACID 6.7 mg/dL (2.6-7.2)
[2020-03-28 09:40] LABS: ALBUMIN 3.9 g/dL (3.2-5.5); BILIRUBIN,TOTAL 0.7 mg/dL (0.2-1.0); CREATININE 1.3 mg/dL (0.4-1.0); TOTAL PROTEIN 7.7 g/dL (6.7-8.2)
[2020-03-28 10:43] LABS: MICROALBUM/CREATININE RATIO,UR 28.6 ug/mg (<30.0); MICROALBUMIN,URINE 9.4 mg/dL (0-300.0)
== END 2020-03-28 08:57 | disposition home or self-care (01) ==
LOC: LAB 08:56
PROVIDERS: ATTEND Internal Medicine Rheumatology
DX: N18.32 Chronic kidney disease, stage 3b (principal); I12.9 Hypertensive chronic kidney disease with stage 1 through stage 4 chronic kidney disease, or unspecified chronic kidney disease; M81.0 Age-related osteoporosis without current pathological fracture
CPT/HCPCS: 80053; 82043; 82306; 82570; 83735; 83970; 84100; 84550; 85025

== ENCOUNTER 2020-05-10 12:45 | Outpatient (CLI) | payer MEDICARE, OTHER ==
--- OUTSIDE RECORDS SUMMARY | 2020-05-10 12:50 | EXTERNAL MEDICAL SUMMARY RPT | Continuity of Care Document ---
:1945 Demographics Phone Unavailable Preferred Language Unknown Marital Status Unknown Confucianism Affiliation Unknown Race Unknown Ethnic Group Unknown Author Organization [facility] Address [address] [phone] Phone Care Team Providers Name Role Phone Coleman Unavailable Unavailable Problems date description facility 2020-02-10 11:54 ESSENTIAL (PRIMARY) HYPERTENSION [facility] 2020-02-10 11:54 CHRONIC ATRIAL FIBRILLATION, [facility] UNSPECIFIED 2020-02-10 11:54 UNSPECIFIED ATRIAL FIBRILLATION [facility] 2020-02-10 11:54 CHRONIC KIDNEY DISEASE, STAGE 3 [facility] UNSPECIFIED 2020-03-28 08:56 AGE-RELATED OSTEOPOROSIS W/O [facility] CURRENT PATHOLOGICAL FRACTURE 2020-03-28 08:56 CHRONIC KIDNEY DISEASE, STAGE 3B [facility] Allergies date description facility NO KNOWN ENVIRONMENTAL ALLERGIES [facility] No Known Drug Allergies [facility] diltiazem [facility] Results Social History date description facility [phone]
--- NOTE | 2020-05-10 13:57 | SLEEP CARE CONSULTATION ---
Information from patient questionnaire entered by Jennifer White. I have reviewed and concur with the information entered by Jennifer White. This document represents the service I personally performed and the decisions made by me, Manisha Bess ARNP. History of Present Illness Service Date and Time: 05/10/2020 1245 Previous diagnosis: Severe, Obstructive Sleep Apnea-Hypopnea Syndrome AHI: 49.5 (in 2011) Reason for follow up: three month Accompanied by: Spouse Equipment type: CPAP Equipment obtained from: [facility] (in [place]; getting supplies as needed) Mask style: Full face Backup mask available: Yes Prior sleep studies: Yes Year and Where: 2011 - [facility] in [place], [place] Type of Sleep Study: Polysomnography (Split-night) HPI additional information: ALAN FELIZ was diagnosed to have severe, AHI 49.5, obstructive sleep apnea- hypopnea syndrome and returned today with her for CPAP therapy three month follow-up. Sleep Study - Results Prior sleep studies: Yes Year and Where: around 2011 - [facility] in [place], [place] CPAP Compliance Data Compliance data discussion: We were unable to get compliance information off her card because it was broken. A new card was given to her to have her put in her machine to download her information and then bring the card back into the office so we may have her information. Subjective Patient concerns: reports: mask discomfort (to tight sometimes), mask leak noise (sometimes). denies: aerophagia, air blowing in eyes, condensation in mask/hose, nasal congestion, dry mouth, nose, throat, epistaxis, other Observed to snore while using device: No Current pressure setting perceived as: comfortable On therapy, patient: reports: sleeping better, awakening more refreshed, being more awake and alert during the day, more rested overall. denies: drowsiness while driving Initial [place] Sleepiness Scale score: 4 (in 2019) Current [place] Sleepiness Scale score: 5 Allergies and Home Medications Drug allergies reviewed: Yes (diltiazem) Home medication list reviewed: Yes (no changes) Review of Systems Review of systems same as previous: Yes (no changes) Physical Exam Heart Rate: 60 O2 Saturation: 96 Height: 4 ft 9 in Weight: 159 lb Body Mass Index: 34.4 BMI Classification: Obese Impression and Plan 1. Obstructive Sleep Apnea-Hypopnea Syndrome, severe, with unknown treatment compliance and unknown apnea control. On CPAP therapy, the patient has better sleep quality and is more rested overall. Patient was instructed to put the new card into her machine to download her compliance information and bring this back to the office. Her follow up will be determined by this information. Patient had some mask discomfort because she was tightening her worn our headgear to keep mask on her face. This has improved since she got a new set of headgear. She states she gets lines on face with some reddening when she has to tighten her mask and the lines do not go away very quickly. I advised patient that she can obtain some headgear padding to help reduce the lines on her face. She can ask her DME, just look online for these products or make one herself. She states she has a friend who uses something like this and will ask her about it. Patient and voiced understanding of teaching information and agreement with plan of care. Patient's apnea severity and rationale for treatment to reduce apnea, improve sleep quality and reduce cardiovascular and cerebrovascular events was reviewed. I also reviewed the benefit of consistent device use of CPAP for hypertension, cardiac disease, and arrhythmia. * Continue auto CPAP pressure at 16-20 cmH2O * Patient to bring in compliance card once she has downloaded information onto new card * Notify me if snoring with mask or feeling that the pressure is too much or too little * Call this office if any problems using CPAP * Return for follow up in 1-2 months depending on compliance information, or sooner if concerns arise Counseling Topics: Spare mask Visit Type: In Office Time Spent with Patient (minutes): 29 Provider Statement: I spent 100% of the Face to Face Visit with the patient with greater than 50% spent counseling the patient and coordination of care.
== END 2020-05-10 12:46 | disposition home or self-care (01) ==
LOC: SC 12:45
PROVIDERS: ATTEND Nurse Practitioner Family
DX: G47.33 Obstructive sleep apnea (adult) (pediatric) (principal); E66.9 Obesity, unspecified; Z68.34 Body mass index [BMI] 34.0-34.9, adult
CPT/HCPCS: 99213; G0463; 99212

== ENCOUNTER 2020-05-17 08:00 | Outpatient (CLI) | payer MEDICARE, OTHER ==
[2020-05-17 14:32] LABS: BUN - BLOOD UREA NITROGEN 30 mg/dL (6-20); CALCIUM 9.4 mg/dL (8.5-10.3); CARBON DIOXIDE - CO2 28 mmol/L (21-32); CHLORIDE 101 mmol/L (101-111); CREATININE 1.4 mg/dL (0.4-1.0); CRP - C-REACTIVE PROTEIN < 1.0 mg/dL (0-1.0); GLUCOSE 99 mg/dL (70-100)
== END 2020-05-17 23:59 | disposition home or self-care (01) ==
LOC: LAB 08:00
PROVIDERS: ATTEND Internal Medicine
DX: I48.91 Unspecified atrial fibrillation (principal); M35.3 Polymyalgia rheumatica
CPT/HCPCS: 36415; 80048; 85610; 85651; 86140

== ENCOUNTER 2020-06-06 13:07 | Outpatient (CLI) | payer MEDICARE, OTHER ==
--- NOTE | 2020-06-06 13:52 | SLEEP CARE CONSULTATION ---
Information from patient questionnaire entered by Jennifer White. I have reviewed and concur with the information entered by Jennifer White. This document represents the service I personally performed and the decisions made by , Manisha Bess ARNP. History of Present Illness Service Date and Time: 06/06/2020 1307 Previous diagnosis: Severe, Obstructive Sleep Apnea-Hypopnea Syndrome AHI: 49.5 (in 2011) Reason for follow up: one month Equipment type: CPAP Equipment obtained from: [facility] (in [place]; getting supplies as needed) Mask style: Full face Backup mask available: No (will need to keep old mask when replaced) Prior sleep studies: Yes Year and Where: around 2011 - [facility] in [place], [place] Type of Sleep Study: Polysomnography (Split-night) HPI additional information: ALAN FELIZ was diagnosed to have severe, AHI 49.5, obstructive sleep apnea- hypopnea syndrome and returned today with spouse for CPAP therapy one month follow-up. CPAP Compliance Data - Data Reviewed with Patient Average duration of nightly device use: 4 hours 20 minutes 5 seconds Compliance rate %: 50 Current pressure setting (cmH2O): 19-20 Average residual AHI: 17.2 Central apnea: 2.6 Obstructive apnea: 3.3 Average large leak: 1 hour 41 mins 13 secs Subjective Missed days of use due to: reports: mask issues Patient concerns: reports: air blowing in eyes, mask leak noise. denies: aerophagia, mask discomfort, condensation in mask/hose, nasal congestion, dry mouth, nose, throat, epistaxis, other Observed to snore while using device: No Current pressure setting perceived as: too high On therapy, patient: reports: sleeping better, awakening more refreshed, being more awake and alert during the day, more rested overall. denies: drowsiness while driving Initial [place] Sleepiness Scale score: 4 (in 2019) Current [place] Sleepiness Scale score: 4 Allergies and Home Medications Home medication list reviewed: Yes (no changes) Review of Systems Review of systems same as previous: Yes (no changes) Physical Exam Heart Rate: 59 O2 Saturation: 98 Height: 4 ft 9 in Weight: 166 lb Body Mass Index: 35.9 BMI Classification: Obese Impression and Plan 1. Obstructive Sleep Apnea-Hypopnea Syndrome, severe, with fair treatment compliance and fair apnea control with an elevated residual AHI. On CPAP therapy, the patient has better sleep quality and is more rested overall. Patient also feels the pressure is too much at the onset of treatment but it is okay once she has her mask on securely. The patients pressure will be changed to autoCPAP 15-20 cmH20 for elevation of residual AHI. Patient advised to contact me if pressure change is uncomfortable so that it can be adjusted. Goals for apnea control discussed. Patient's apnea severity and rationale for treatment to reduce apnea, improve sleep quality and reduce cardiovascular and cerebrovascular events was reviewed. I also reviewed the benefit of consistent device use of CPAP for hypertension, cardiac disease, and arrhythmia. * Changeauto CPAP pressure to 15-20 cmH2O * Notify me if snoring with mask or feeling that the pressure is too much or too little * Attempt to lose weight * Call this office if any problems using CPAP * Return for follow up in 1 month, or sooner if concerns arise Counseling Topics: Spare mask, Weight loss health impact Visit Type: In Office Time Spent with Patient (minutes): 29 Provider Statement: I spent 100% of the Face to Face Visit with the patient with greater than 50% spent counseling the patient and coordination of care.
== END 2020-06-06 13:08 | disposition home or self-care (01) ==
LOC: SC 13:07
PROVIDERS: ATTEND Nurse Practitioner Family
DX: G47.33 Obstructive sleep apnea (adult) (pediatric) (principal); E66.9 Obesity, unspecified; Z68.35 Body mass index [BMI] 35.0-35.9, adult
CPT/HCPCS: 99213; G0463; 99212

== ENCOUNTER 2020-07-07 12:52 | Outpatient (CLI) | payer MEDICARE, OTHER ==
--- NOTE | 2020-07-07 13:23 | SLEEP CARE CONSULTATION ---
Information from patient questionnaire entered by Jennifer White. I have reviewed and concur with the information entered by Jennifer White. This document represents the service I personally performed and the decisions made by , Manisha Bess ARNP. History of Present Illness Service Date and Time: 07/07/2020 1252 Previous diagnosis: Severe, Obstructive Sleep Apnea-Hypopnea Syndrome AHI: 49.5 (in 2011) Reason for follow up: one month (with pressure change) Equipment type: CPAP Equipment obtained from: [facility] (in [place]; getting supplies as needed) Mask style: Full face Backup mask available: Yes (old mask) Last cushion change: 1 month Prior sleep studies: Yes Year and Where: around 2011 - [facility] in [place], [place] Type of Sleep Study: Polysomnography (Split-night) HPI additional information: ALAN FELIZ was diagnosed to have severe, AHI 49.5, obstructive sleep apnea- hypopnea syndrome and returned today with spouse for CPAP therapy one month pressure change follow-up. CPAP Compliance Data - Data Reviewed with Patient Average duration of nightly device use: 5 hours 33 minutes Compliance rate %: 76.7 Current pressure setting (cmH2O): 15-20 Humidity settin Heated hose settin Average residual AHI: 16.6 Central apnea: 3.0 Obstructive apnea: 3.4 Hypopnea: 10.2 Average large leak: 2 hours Subjective Missed days of use due to: reports: mask issues Patient concerns: reports: mask leak noise (once in a while). denies: aerophagia, mask discomfort, air blowing in eyes, condensation in mask/hose, nasal congestion, dry mouth, nose, throat, epistaxis, other Observed to snore while using device: Yes Current pressure setting perceived as: comfortable On therapy, patient: reports: sleeping better, awakening more refreshed, being more awake and alert during the day, more rested overall. denies: drowsiness while driving Initial [place] Sleepiness Scale score: 4 (in 2019) Current [place] Sleepiness Scale score: 3 Allergies and Home Medications Home medication list reviewed: Yes (no changes) Review of Systems Review of systems same as previous: Yes (no changes) Physical Exam Heart Rate: 82 O2 Saturation: 96 Height: 4 ft 9 in Weight: 162 lb Body Mass Index: 35.0 BMI Classification: Obese Impression and Plan 1. Obstructive Sleep Apnea-Hypopnea Syndrome, severe, with fair treatment compliance and fair apnea control with elevated residual AHI. On CPAP therapy, the patient has better sleep quality and is more rested overall. I reviewed the chart and the last split night PSG showed good apnea control at 10 cmH2O. The patients pressure will be changed to autoCPAP 10-18 cmH20 for elevation of residual AHI. Patient advised to contact me if pressure change is uncomfortable so that it can be adjusted. Goals for apnea control discussed. She is going to [place] [employer] and will be back in August. I will have her follow up in 3 months after she returns. She voiced understanding. Patient's apnea severity and rationale for treatment to reduce apnea, improve sleep quality and reduce cardiovascular and cerebrovascular events was reviewed. I also reviewed the benefit of consistent device use of CPAP for hypertension, cardiac disease, and arrhythmia. * Change auto CPAP pressure to 10-18 cmH2O * Notify me if snoring with mask or feeling that the pressure is too much or too little * Attempt to lose weight * Call this office if any problems using CPAP * Return for follow up in 3 months, or sooner if concerns arise Counseling Topics: Spare mask, Weight loss health impact Visit Type: In Office Time Spent with Patient (minutes): 24 Provider Statement: I spent 100% of the Face to Face Visit with the patient with greater than 50% spent counseling the patient and coordination of care.
== END 2020-07-07 12:53 | disposition home or self-care (01) ==
LOC: SC 12:52
PROVIDERS: ATTEND Nurse Practitioner Family
DX: G47.33 Obstructive sleep apnea (adult) (pediatric) (principal); E66.9 Obesity, unspecified; Z68.35 Body mass index [BMI] 35.0-35.9, adult
CPT/HCPCS: 99213; G0463; 99212

== ENCOUNTER 2020-09-19 13:54 | Outpatient (CLI) | payer MEDICARE, OTHER ==
[2020-09-19 14:24] LABS: CALCIUM 8.8 mg/dL (8.5-10.3); CREATININE 1.5 mg/dL (0.4-1.0); CRP - C-REACTIVE PROTEIN 12.4 mg/dL (0-1.0); POTASSIUM 3.6 mmol/L (3.5-5.0)
== END 2020-09-19 13:55 | disposition home or self-care (01) ==
LOC: LAB 13:54
PROVIDERS: ATTEND Internal Medicine Rheumatology
DX: M35.3 Polymyalgia rheumatica (principal)
CPT/HCPCS: 36415; 80048; 85651; 86140

== ENCOUNTER 2020-09-26 09:09 | Outpatient (CLI) | payer MEDICARE, OTHER ==
[2020-09-26 09:24] LABS: HGB - HEMOGLOBIN 13.5 g/dL (12.0-16.0); MEAN CORPUSCULAR HEMOGLOBIN 28.3 pg (27.0-31.0); MEAN CORPUSCULAR HGB CONC 31.4 g/dL (32.0-36.0); MEAN CORPUSCULAR VOLUME 90.1 fL (81.0-99.0); RED BLOOD COUNT 4.77 10^6/uL (4.20-5.40); RED CELL DISTRIBUTION WIDTH 15.9 % (12.0-15.0); WHITE BLOOD COUNT 7.1 x10^3/uL (4.8-10.8)
[2020-09-26 09:44] LABS: CALCIUM 9.8 mg/dL (8.5-10.3); CREATININE 1.3 mg/dL (0.4-1.0); CRP - C-REACTIVE PROTEIN 1.2 mg/dL (0-1.0); POTASSIUM 3.7 mmol/L (3.5-5.0)
[2020-09-26 09:45] LABS: ALBUMIN 4.1 g/dL (3.2-5.5); CALCIUM 9.9 mg/dL (8.5-10.3); CREATININE 1.4 mg/dL (0.4-1.0); PHOSPHORUS 2.9 mg/dL (2.5-4.6); POTASSIUM 3.7 mmol/L (3.5-5.0); URIC ACID 8.2 mg/dL (2.6-7.2)
[2020-09-26 10:32] LABS: PROTEIN/CREATININE RATIO,URINE 0.1 (<=0.2)
== END 2020-09-26 09:10 | disposition home or self-care (01) ==
LOC: LAB 09:09
PROVIDERS: ATTEND Internal Medicine Rheumatology
DX: M35.3 Polymyalgia rheumatica (principal); N18.32 Chronic kidney disease, stage 3b
CPT/HCPCS: 36415; 80048; 80069; 82570; 83970; 84156; 84550; 85027; 85651; 86140

== ENCOUNTER 2020-10-13 13:03 | Outpatient (CLI) | payer MEDICARE, OTHER ==
--- NOTE | 2020-10-13 13:44 | SLEEP CARE CONSULTATION ---
Information from patient questionnaire entered by Jennifer White. I have reviewed and concur with the information entered by Jennifer White. This document represents the service I personally performed and the decisions made by , Manisha Bess ARNP. History of Present Illness Service Date and Time: 10/13/2020 1303 Previous diagnosis: Severe, Obstructive Sleep Apnea-Hypopnea Syndrome AHI: 49.5 (in 2011) Reason for follow up: three month Equipment type: CPAP Equipment obtained from: [facility] (in [place]; getting supplies as needed) Mask style: Full face Backup mask available: Yes (old mask) Last cushion change: no idea Prior sleep studies: Yes Year and Where: 2012 - [facility] in [place], [place] Type of Sleep Study: Polysomnography (Split-night) HPI additional information: ALAN FELIZ was diagnosed to have severe, AHI 49.5, obstructive sleep apnea- hypopnea syndrome and returned today with stepson for CPAP therapy 3 month with pressure change follow-up. CPAP Compliance Data - Data Reviewed with Patient Average duration of nightly device use: 4 hr 45 min Compliance rate %: 30 Current pressure setting (cmH2O): 10-18 Humidity settin Heated hose settin Average residual AHI: 27.8 Average large leak: 41 min 54 sec Subjective Missed days of use due to: reports: family emergency ( in June) Patient concerns: denies: aerophagia, mask discomfort, air blowing in eyes, mask leak noise, condensation in mask/hose, nasal congestion, dry mouth, nose, throat, epistaxis, other Observed to snore while using device: No Current pressure setting perceived as: comfortable On therapy, patient: reports: sleeping better, awakening more refreshed, being more awake and alert during the day, more rested overall. denies: drowsiness while driving Initial [place] Sleepiness Scale score: 4 (in 2019) Current [place] Sleepiness Scale score: 4 Allergies and Home Medications Home medication list reviewed: Yes (She stopped warfarin and started Eliquis) Review of Systems Review of systems same as previous: Yes (no changes) Physical Exam Heart Rate: 60 O2 Saturation: 92 Height: 4 ft 9 in Weight: 151 lb Body Mass Index: 32.6 BMI Classification: Obese Impression and Plan 1. Obstructive Sleep Apnea-Hypopnea Syndrome, severe, with poor treatment compliance and poor apnea control with elevated residual AHI. On CPAP therapy, the patient has better sleep quality and is more rested overall. The patients pressure will be changed to autoCPAP 15-20 cmH20 for elevation of residual AHI. Patient advised to contact me if pressure change is uncomfortable so that it can be adjusted. Goals for apnea control discussed. I will order a titration study to determine appropriate pressure settings for patient since she is not well controlled on higher CPAP ranges. She may need a BIPAP. Patient agreeable to have a titration study and to increasing her pressure back to previous setting that controlled her apneas better. Patient's apnea severity and rationale for treatment to reduce apnea, improve sleep quality and reduce cardiovascular and cerebrovascular events was reviewed. I also reviewed the benefit of consistent device use of CPAP for hypertension, cardiac disease, and arrhythmia. * Titration study * Change auto CPAP pressure to 15-20 cmH2O * Notify me if snoring with mask or feeling that the pressure is too much or too little * Attempt to lose weight * Call this office if any problems using CPAP * Return for follow up after titration study, or sooner if concerns arise Counseling Topics: Weight loss health impact Visit Type: In Office Time Spent with Patient (minutes): 23 Provider Statement: I spent 100% of the Face to Face Visit with the patient with greater than 50% spent counseling the patient and coordination of care.
== END 2020-10-13 13:04 | disposition home or self-care (01) ==
LOC: SC 13:03
PROVIDERS: ATTEND Nurse Practitioner Family
DX: G47.33 Obstructive sleep apnea (adult) (pediatric) (principal); E66.9 Obesity, unspecified; Z68.32 Body mass index [BMI] 32.0-32.9, adult
CPT/HCPCS: 99213; G0463; 99212

== ENCOUNTER 2021-02-06 10:32 | Outpatient (CLI) | payer MEDICARE, OTHER ==
[2021-02-06 11:12] VITALS: BP 130/82
--- NOTE | 2021-02-06 11:12 | SLEEP CARE CONSULTATION ---
Information from patient questionnaire entered by Macrina Farrar. I have reviewed and concur with the information entered by Macrina Farrar. This document represents the service I personally performed and the decisions made by me, Manisha Bess ARNP. History of Present Illness Service Date and Time: 02/06/2021 1032 Previous diagnosis: Severe, Obstructive Sleep Apnea-Hypopnea Syndrome AHI: 49.5 (in 2011) Reason for follow up: three month (issues using CPAP) Equipment type: CPAP Equipment obtained from: [facility] (in [place]; getting supplies as needed) Mask style: Full face Mask brand: Respironics (Dreamwear) Backup mask available: No (needs supplies) Last cushion change: 3 months Prior sleep studies: Yes Year and Where: 2011 - [facility] in [place], [place] Type of Sleep Study: Polysomnography (Split-night) HPI additional information: ALAN FELIZ was diagnosed to have severe, AHI 49.5, obstructive sleep apnea- hypopnea syndrome and returned today for CPAP therapy three month with issues using CPAP follow-up. Sleep Study - Results Type of Sleep Study: Polysomnography (Split-night) Prior sleep studies: Yes Year and Where: 2012 - [facility] in [place], [place] CPAP Compliance Data - Data Reviewed with Patient Average duration of nightly device use: 4 hours 44 minutes Compliance rate %: 10 Current pressure setting (cmH2O): 15-20 Humidity settin Heated hose settin Average residual AHI: 20.3 Average large leak: 41 minutes 9 seconds Subjective Missed days of use due to: reports: family emergency (Her ), mask issues (straps too tight; takes off because it annoys her) Patient concerns: reports: mask discomfort, air blowing in eyes, mask leak noise. denies: aerophagia, condensation in mask/hose, nasal congestion, dry mouth, nose, throat, epistaxis, other Observed to snore while using device: No Current pressure setting perceived as: comfortable On therapy, patient: reports: other (doesn't really feel a difference). denies: drowsiness while driving Initial [place] Sleepiness Scale score: 4 (in 2019) Current [place] Sleepiness Scale score: 2 Allergies and Home Medications Home medication list reviewed: Yes (Eliquis) Review of Systems Review of systems same as previous: No (skin Suni removal surgery-more coming) Physical Exam Blood Pressure: 130/82 Cuff size: long Heart Rate: 60 O2 Saturation: 97 Height: 4 ft 9 in Weight: 142 lb Body Mass Index: 30.7 BMI Classification: Obese Impression and Plan 1. Obstructive Sleep Apnea-Hypopnea Syndrome, severe, with poor treatment compliance and fair apnea control. Patient states she does not know the difference from using she feels she is using it sufficiently but I discussed with her about her compliance is low. She states she can use it when she is down in [place] because it is too hot. She states she will be leaving for [place] at the end of March. Patient states she is not having any issues using the machine or with her mask other than some air blowing into her eyes and some mask leak noises. She states the mask seems to be softer but she has not changed it in about 3 months. Mask leaks can be reduced by washing mask daily and changing mask cushions more frequently to improve mask seal and comfort. Patient voiced understanding. I informed the patient that [employer] has a recall on several devices like the patients machine. Patient was encouraged to register their device online with [employer] for the recall to see if their device is affected. If their device is affected they should start a claim. Patient denies any black particles seen in machine or hoses, any unusual odors coming from device. Patient has not experienced any physical symptoms such as upper airway irritation, headache, skin or eye irritation, asthma, nausea/vomiting, difficulty breathing or chest pain. Patient informed that they may use an inline CPAP filter that they can obtain online to reduce chance of any particles being inhaled or ingested. We discussed thoroughly the health risks of not using the CPAP versus continuing use with the filter in place. If patient is not able to sleep due to waking up choking, gasping for air or other respiratory distress that they may decide to continue using it until it is either replaced or repaired. Patient voiced understanding and agreement with plan. Patient's apnea severity and rationale for treatment to reduce apnea, improve sleep quality and reduce cardiovascular and cerebrovascular events was reviewed. I also reviewed the benefit of consistent device use of CPAP for hypertension, cardiac disease and arrhythmia. * Continue auto CPAP pressure at 15-20 cmH2O * Notify me if snoring with mask or feeling that the pressure is too much or too little * Attempt to lose weight * Call this office if any problems using CPAP * Return for follow up in 1-2 months, or sooner if concerns arise Counseling Topics: Spare mask, Weight loss health impact Visit Type: In Office Time Spent with Patient (minutes): 29 Provider Statement: I spent 100% of the Face to Face Visit with the patient with greater than 50% spent counseling the patient and coordination of care.
== END 2021-02-06 10:33 | disposition home or self-care (01) ==
LOC: SC 10:32
PROVIDERS: ATTEND Nurse Practitioner Family
DX: G47.33 Obstructive sleep apnea (adult) (pediatric) (principal); E66.9 Obesity, unspecified; Z68.30 Body mass index [BMI] 30.0-30.9, adult
CPT/HCPCS: 99213; G0463; 99212

== ENCOUNTER 2021-03-30 14:23 | Outpatient (CLI) | payer MEDICARE, OTHER ==
[2021-03-30 15:11] LABS: BUN - BLOOD UREA NITROGEN 26 mg/dL (6-20); CALCIUM 9.9 mg/dL (8.5-10.3); CARBON DIOXIDE - CO2 29 mmol/L (21-32); CHLORIDE 99 mmol/L (101-111); CREATININE 1.4 mg/dL (0.4-1.0); GFR - MDRD 36 (>89); GLUCOSE 105 mg/dL (70-100); POTASSIUM 3.9 mmol/L (3.5-5.0); SODIUM 141 mmol/L (135-145)
[2021-03-30 15:12] LABS: CRP - C-REACTIVE PROTEIN < 1.0 mg/dL (0-1.0)
== END 2021-03-30 14:24 | disposition home or self-care (01) ==
LOC: LAB 14:23
PROVIDERS: ATTEND Internal Medicine Rheumatology
DX: M35.3 Polymyalgia rheumatica (principal); Z79.52 Long term (current) use of systemic steroids
CPT/HCPCS: 36415; 80048; 85651; 86140

== ENCOUNTER 2021-09-07 10:06 | Outpatient (CLI) | payer MEDICARE, OTHER ==
[2021-09-07 10:32] LABS: BASOPHILS % (AUTO) 0.5 %; EOSINOPHILS # (AUTO) 0.1 10^3/uL (0.0-0.7); EOSINOPHILS % (AUTO) 1.7 %; HCT - HEMATOCRIT 39.6 % (37.0-47.0); HGB - HEMOGLOBIN 12.5 g/dL (12.0-16.0); LYMPHOCYTES # (AUTO) 1.6 10^3/uL (1.5-3.5); LYMPHOCYTES % (AUTO) 27.3 %; MEAN CORPUSCULAR HEMOGLOBIN 28.7 pg (27.0-31.0); MEAN CORPUSCULAR HGB CONC 31.6 g/dL (32.0-36.0); MEAN PLATELET VOLUME 11.4 fL (7.9-10.8); MONOCYTES # (AUTO) 0.6 10^3/uL (0.0-1.0); MONOCYTES % (AUTO) 9.7 %; NEUTROPHILS # (AUTO) 3.6 10^3/uL (1.5-6.6); NEUTROPHILS % (AUTO) 60.6 %; PLT - PLATELET COUNT 201 10^3/uL (130-450); RED BLOOD COUNT 4.35 10^6/uL (4.20-5.40); RED CELL DISTRIBUTION WIDTH 15.9 % (12.0-15.0)
[2021-09-07 10:49] LABS: ALBUMIN 3.9 g/dL (3.2-5.5); ALBUMIN/GLOBULIN RATIO 1.1 (1.0-2.2); ALKALINE PHOSPHATASE 44 IU/L (42-121); ALT ALANINE AMINOTRANSFERASE 14 IU/L (10-60); AST ASPARTATE AMINOTRANSFERASE 23 IU/L (10-42); BILIRUBIN,TOTAL 0.8 mg/dL (0.2-1.0); BUN - BLOOD UREA NITROGEN 29 mg/dL (6-20); CALCIUM 9.1 mg/dL (8.5-10.3); CARBON DIOXIDE - CO2 26 mmol/L (21-32); CHLORIDE 105 mmol/L (101-111); CREATININE 1.2 mg/dL (0.4-1.0); GFR - MDRD 43 (>89); GLUCOSE 95 mg/dL (70-100); POTASSIUM 3.5 mmol/L (3.5-5.0); SODIUM 143 mmol/L (135-145); TOTAL PROTEIN 7.4 g/dL (6.7-8.2)
[2021-09-07 10:50] LABS: CRP - C-REACTIVE PROTEIN < 1.0 mg/dL (0-1.0)
[2021-09-07 11:09] LABS: THYROID STIMULATING HORMONE 1.57 uIU/mL (0.34-5.60)
== END 2021-09-07 10:07 | disposition home or self-care (01) ==
LOC: LAB 10:06
PROVIDERS: ATTEND Internal Medicine Rheumatology
DX: E03.9 Hypothyroidism, unspecified (principal); N18.9 Chronic kidney disease, unspecified; Z13.1 Encounter for screening for diabetes mellitus; M35.3 Polymyalgia rheumatica
CPT/HCPCS: 36415; 80053; 84443; 85025; 85651; 86140

== ENCOUNTER 2022-04-12 10:28 | Outpatient (CLI) | payer MEDICARE, OTHER ==
[2022-04-12 11:35] LABS: BUN - BLOOD UREA NITROGEN 35 mg/dL (6-20); CALCIUM 9.6 mg/dL (8.5-10.3); CARBON DIOXIDE - CO2 28 mmol/L (21-32); CHLORIDE 101 mmol/L (101-111); CREATININE 1.4 mg/dL (0.4-1.0); GFR - MDRD 36 (>89); GLUCOSE 97 mg/dL (70-100); POTASSIUM 3.8 mmol/L (3.5-5.0); SODIUM 141 mmol/L (135-145)
[2022-04-12 11:38] LABS: CRP - C-REACTIVE PROTEIN < 1.0 mg/dL (0-1.0)
== END 2022-04-12 10:29 | disposition home or self-care (01) ==
LOC: LAB 10:28
PROVIDERS: ATTEND Internal Medicine Rheumatology
DX: E55.9 Vitamin D deficiency, unspecified (principal); M35.3 Polymyalgia rheumatica; Z51.81 Encounter for therapeutic drug level monitoring; Z79.899 Other long term (current) drug therapy; Z79.52 Long term (current) use of systemic steroids
CPT/HCPCS: 36415; 80048; 82306; 86140

== ENCOUNTER 2022-07-18 16:27 | Outpatient (CLI) | payer MEDICARE, OTHER | END 2022-07-18 23:59 | disposition critical access hospital (66) | LOC: EMS 16:27 | DX: R55 Syncope and collapse (principal); R42 Dizziness and giddiness; R41.89 Other symptoms and signs involving cognitive functions and awareness; R26.2 Difficulty in walking, not elsewhere classified | CPT/HCPCS: A0425; A0429 ==

== ENCOUNTER 2022-07-18 16:42 | Emergency (ER) | payer MEDICARE, OTHER ==
--- NOTE | 2022-07-18 16:55 | ED Physician Documentation ---
History of Present Illness - Stated complaint Stated Complaint: SYNCOPAL EPISODE - Chief complaint Chief Complaint: Neuro - History obtained from History obtained from: Patient - Additonal information Additional information: 77-year-old woman with history of atrial fibrillation, pacemaker in place, and we presume on a DOAC, but she does not know her med list presents after potential syncopal episode. States that she went to make lunch and then started feel lightheaded and made her way into the bedroom and then woke up after a few hours. She does not think there was any trauma. She feels like she was probably dizzy for maybe 5 minutes before she made it into bed. Unclear if she actually passed out or just fell asleep. She feels fine now. PD PAST MEDICAL HISTORY - Past Medical History Cardiovascular: Hypertension, Atrial fibrillation Respiratory: Sleep apnea Endocrine/Autoimmune: HyPOthyroidism KILN PACKER: Endometriosis Psych: None Musculoskeletal: Osteoarthritis, Osteoporosis, Chronic back pain - Past Surgical History Past Surgical History: Yes - Present Medications Home Medications: Ambulatory Orders Medication Instructions Recorded Confirmed Carvedilol 6.25 mg PO DAILY 04/02/15 04/02/15 Levothyroxine [Synthroid] 25 mcg PO QDAC 04/02/15 04/02/15 Liothyronine [Cytomel] 5 mcg PO QDAC 04/02/15 10/11/16 NIFEdipine [Nifedipine] 30 mg PO DAILY 04/02/15 04/02/15 Warfarin [Coumadin] 1 mg PO 1400 04/02/15 04/02/15 lisinopriL [Lisinopril] 10 mg PO BID 04/02/15 04/02/15 predniSONE [Prednisone] 3 mg 04/02/15 04/02/15 Ivermectin 15 mg PO DAILY #10 tablet 04/05/18 Spironolactone 04/05/18 04/05/18 - Allergies Allergies/Adverse Reactions: Allergies Allergy/AdvReac Type Severity Reaction Status Date / Time diltiazem Allergy Unknown Unknown Verified 07/18/22 16:50 - Social History Does the pt smoke?: No Smoking Status: Never smoker Does the pt drink ETOH?: Yes Does the pt have substance abuse?: No - Immunizations Immunizations are current?: Yes - POLST Patient has POLST: No PD ED PE NORMAL - Vitals Vital signs reviewed: Yes (Paced on the monitor at a rate of 60 with underlying A-fib) - General General: Alert and oriented X 3 (But mildly confused), No acute distress - HEENT HEENT: PERRL, EOMI - Neck Neck: Supple, no meningeal sign, No bony TTP - Cardiac Cardiac: RRR, No murmur - Respiratory Respiratory: No respiratory distress, Clear bilaterally - Abdomen Abdomen: Non tender - Derm Derm: Normal color, Warm and dry - Neuro Neuro: Alert and oriented X 3 (Again, but mildly confused. Takes her a moment to remember what neighborhood she lives in but is able to come up with it etc.), urban renewal manager 2-12 intact, No motor deficit, No sensory deficit, Normal speech Eye Opening: Spontaneous Motor: Obeys Commands Verbal: Oriented GCS Score: 15 Results - Vitals Vitals: Vital Signs - 24 hr 07/18/22 07/18/22 07/18/22 16:46 16:51 18:04 Temperature 36.9 C Heart Rate 112 H 60 Respiratory 17 17 19 Rate Blood Pressure 144/108 H 137/81 H O2 Saturation 97 98 07/18/22 07/18/22 18:34 19:26 Temperature Heart Rate 68 60 Respiratory 14 19 Rate Blood Pressure 159/107 H 140/92 H O2 Saturation 100 100 Oxygen O2 Source Room air - EKG (time done) 1644 EKG releavant findings:: EKG personally interpreted by author of this note. Relevant findings are: Rate: Rate (enter#) (60) Rhythm: Other (Paced with underlying A-fib/flutter) - Labs Labs: Laboratory Tests 07/18/22 07/18/22 17:05 17:05 WBC 7.1 RBC 4.47 Hgb 13.0 Hct 40.9 MCV 91.5 MCH 29.1 MCHC 31.8 L RDW 15.6 H Plt Count 206 MPV 10.6 Neut # (Auto) 5.1 Lymph # (Auto) 1.4 L Hopkins # (Auto) 0.5 Eos # (Auto) 0.1 Baso # (Auto) 0.0 Absolute Nucleated RBC 0.00 Nucleated RBC % 0.0 Sodium 139 Potassium 4.2 Chloride 102 Carbon Dioxide 27 Anion Gap 10.0 BUN 36 H Creatinine 1.6 H Estimated GFR (MDRD) 31 L Glucose 104 H Calcium 9.4 Magnesium 2.3 - Rads (name of study) CT head Relevant Findings:: Final report received, EMP independent interpretation of test PD Medical Decision Making - ED course ED course: CBC reviewed and normal. BMP reviewed showing elevated BUN and creatinine, but in line with prior values. CT of the head without pertinent positive findings. Not clear if she syncopized versus was dizzy and then laid down and slept. She really just does not remember a few hours of the day. She is asymptomatic now with an unremarkable exam and a paced rhythm so doubt malignant arrhythmia. She is mildly confused here. Subsequently her daughter called, she is reportedly a nurse in [place] and spoke with our nurse. She reports that the patient is demented but continues to live alone. She reported that they were just "waiting for a shit show like this to put her in at home." Reportedly the son is coming to pick her up. Subsequently her son did arrive and is picking her up. He was given resources on in-home caregivers and [facility] resources. He does feel like she is at her baseline. She is no longer driving thankfully. Departure - Departure Disposition: Home, Self Care Clinical Impression: Neurological deficit, transient Dementia Qualifiers: Dementia type: unspecified type Dementia severity: moderate Dementia behavioral or psychological symptom: without behavioral, psychotic, or mood disturbance or anxiety Qualified Code(s): F03.B0 - Unspecified dementia, moderate, without behavioral disturbance, psychotic disturbance, mood disturbance, and anxiety Condition: Good Record reviewed to determine appropriate education?: Yes Instructions: ED Dementia Caregiver Support, ED Fainting Unkn Cause Comments: Not clear today if you actually passed out versus got dizzy and then just lost a few hours. You do clearly have some memory difficulties, and at some point you may need to consider not living alone anymore. In the meantime though it would be appropriate to have a visiting caregiver to help you with your meds and ensure safety. Either way call your doctor to arrange a follow-up appointment, make the next available appointment. In the interim, return anytime if worse or if new symptoms develop.
[2022-07-18 17:09] LABS: BASOPHILS % (AUTO) 0.3 %; EOSINOPHILS # (AUTO) 0.1 10^3/uL (0.0-0.7); EOSINOPHILS % (AUTO) 0.7 %; HCT - HEMATOCRIT 40.9 % (37.0-47.0); LYMPHOCYTES # (AUTO) 1.4 10^3/uL (1.5-3.5); LYMPHOCYTES % (AUTO) 20.2 %; MEAN CORPUSCULAR HEMOGLOBIN 29.1 pg (27.0-31.0); MEAN CORPUSCULAR HGB CONC 31.8 g/dL (32.0-36.0); MEAN CORPUSCULAR VOLUME 91.5 fL (81.0-99.0); MEAN PLATELET VOLUME 10.6 fL (7.9-10.8); MONOCYTES # (AUTO) 0.5 10^3/uL (0.0-1.0); MONOCYTES % (AUTO) 6.7 %; NEUTROPHILS # (AUTO) 5.1 10^3/uL (1.5-6.6); PLT - PLATELET COUNT 206 10^3/uL (130-450); RED BLOOD COUNT 4.47 10^6/uL (4.20-5.40); RED CELL DISTRIBUTION WIDTH 15.6 % (12.0-15.0); WHITE BLOOD COUNT 7.1 x10^3/uL (4.8-10.8)
[2022-07-18 17:17] LABS: CALCIUM 9.4 mg/dL (8.5-10.3); CREATININE 1.6 mg/dL (0.4-1.0); MAGNESIUM 2.3 mg/dL (1.7-2.8); POTASSIUM 4.2 mmol/L (3.5-5.0)
--- NOTE | 2022-07-18 17:50 | CT Report ---
PROCEDURE: HEAD WO INDICATIONS: syncope TECHNIQUE: Noncontrast 4.5 mm thick angled axial sections acquired from the foramen magnum to the vertex. For r adiation dose reduction, the following was used: automated exposure control, adjustment of mA and/or kV according to patient size. COMPARISON: 10/11/2016 FINDINGS: Image quality: Excellent. CSF spaces: Basal cisterns are patent. No extra-axial fluid collections. The ventricles are symmet angel luis in size and shape. Brain: No intracranial bleeds or masses. There is cerebral volume loss for age, with resultant vent ricular and sulcal prominence. There are periventricular and deep white matter chronic small vessel ischemic changes. There is intracranial internal carotid artery atherosclerosis. Skull and face: Calvarium and visualized facial bones appear intact, without suspicious lesions. Sinuses: Visualized sinuses and mastoids are clear. IMPRESSION: No CT evidence of acute intracranial abnormalities. Reviewed by: Jason Vides MD on 07/18/2022 4:49 PM [facility]DT Approved by: Jason Vides MD on 07/18/2022 4:49 PM AKDT Station ID: [id number]
[2022-07-18 20:34] VITALS: BP 161/102
== END 2022-07-18 20:32 | disposition home or self-care (01) ==
LOC: EDUNIT# → ED 16:42
DX: R29.818 Other symptoms and signs involving the nervous system (principal); F03.B0 Unspecified dementia, moderate, without behavioral disturbance, psychotic disturbance, mood disturbance, and anxiety
CPT/HCPCS: 36415; 80048; 83735; 85025; 93005; 99284

== ENCOUNTER 2022-10-04 09:19 | Outpatient (CLI) | payer MEDICARE, OTHER ==
[2022-10-04 09:51] LABS: BUN - BLOOD UREA NITROGEN 33 mg/dL (6-20); CARBON DIOXIDE - CO2 28 mmol/L (21-32); CHLORIDE 103 mmol/L (101-111); CREATININE 1.4 mg/dL (0.4-1.0); GFR - MDRD 36 (>89); GLUCOSE 99 mg/dL (70-100); POTASSIUM 3.4 mmol/L (3.5-5.0); SODIUM 140 mmol/L (135-145)
[2022-10-04 09:52] LABS: CRP - C-REACTIVE PROTEIN < 1.0 mg/dL (0-1.0)
== END 2022-10-04 09:20 | disposition home or self-care (01) ==
LOC: LAB 09:19
PROVIDERS: ATTEND Internal Medicine Rheumatology
DX: M35.3 Polymyalgia rheumatica (principal)
CPT/HCPCS: 36415; 80048; 85651; 86140

== ENCOUNTER 2023-05-01 11:50 | Outpatient (CLI) | payer MEDICARE, OTHER ==
[2023-05-01 12:20] LABS: ALBUMIN 4.3 g/dL (3.2-5.5); ALBUMIN/GLOBULIN RATIO 1.2 (1.0-2.2); BILIRUBIN,TOTAL 0.7 mg/dL (0.2-1.0); CALCIUM 9.9 mg/dL (8.5-10.3); CREATININE 1.7 mg/dL (0.6-1.3); POTASSIUM 3.6 mmol/L (3.5-4.5); TOTAL PROTEIN 7.8 g/dL (6.4-8.9)
== END 2023-05-01 11:51 | disposition home or self-care (01) ==
LOC: LAB 11:50
PROVIDERS: ATTEND Internal Medicine Rheumatology
DX: M81.0 Age-related osteoporosis without current pathological fracture (principal); Z51.81 Encounter for therapeutic drug level monitoring; Z79.899 Other long term (current) drug therapy; E55.9 Vitamin D deficiency, unspecified
CPT/HCPCS: 36415; 80053; 82306

== ENCOUNTER 2023-05-13 14:30 | Outpatient (CLI) | payer MEDICARE, OTHER | END 2023-05-13 23:59 | disposition critical access hospital (66) | LOC: EMS 14:30 | DX: R55 Syncope and collapse (principal); R41.0 Disorientation, unspecified; M54.50 Low back pain, unspecified | CPT/HCPCS: A0425; A0429 ==

== ENCOUNTER 2023-05-13 14:41 | Observation (INO) | payer MEDICARE, OTHER ==
--- NOTE | 2023-05-13 14:45 | ED Physician Documentation ---
PD HPI SYNCOPE - Stated complaint Stated Complaint: SYNCOPE - History obtained from History obtained from: Patient, EMS - Additional information Additional information: 78-year-old woman presents by ambulance after a syncopal episode. She is confused at this point and does not know her medical history, but a review of the chart shows she has A-fib, pacemaker, and we do not know what medications she is on. Most of the history is from EMS due to the confusion. She was having lunch with a friend and passed out for about 3 minutes. She was modestly hypotensive on scene in the range of 90/60. She states she has no history of syncope, but review of the chart shows I saw her about 10 months ago for syncopal episode. Her only complaint is severe low back pain that started during all of this. 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: Endometriosis Psych: None Musculoskeletal: Osteoarthritis, Osteoporosis, Chronic back pain - Past Surgical History Past Surgical History: Yes - Present Medications Home Medications: Ambulatory Orders Medication Instructions Recorded Confirmed Carvedilol 6.25 mg PO DAILY 04/02/15 04/02/15 Levothyroxine [Synthroid] 25 mcg PO QDAC 04/02/15 04/02/15 NIFEdipine [Nifedipine] 30 mg PO DAILY 04/02/15 04/02/15 lisinopriL [Lisinopril] 10 mg PO BID 04/02/15 04/02/15 predniSONE [Prednisone] 3 mg 04/02/15 04/02/15 Apixaban [Eliquis] 2.5 mg PO BID 05/13/23 05/13/23 Ezetimibe/Rosuvastatin Calcium 20 mg DAILY 05/13/23 05/13/23 [Rosuvastatin-Ezetimibe 20-10Mg] - Allergies Allergies/Adverse Reactions: Allergies Allergy/AdvReac Type Severity Reaction Status Date / Time diltiazem Allergy Unknown Unknown Verified 07/18/22 16:50 - Social History Does the pt smoke?: No Smoking Status: Never smoker Does the pt drink ETOH?: Yes Does the pt have substance abuse?: No - Immunizations Immunizations are current?: Yes - POLST Patient has POLST: No PD ED PE NORMAL - Vitals Vital signs reviewed: Yes - General General: Other (She is alert and oriented to person and place but not time or events) - Cardiac Cardiac: RRR (Paced rhythm on the monitor), No murmur - Respiratory Respiratory: No respiratory distress, Clear bilaterally - Abdomen Abdomen: Non tender - Derm Derm: Normal color, Warm and dry - Extremities Extremities: No edema, No calf tenderness / cord - Neuro Neuro: orthopaedic surgeon 2-12 intact Eye Opening: Spontaneous Motor: Obeys Commands Verbal: Confused GCS Score: 14 Results - Vitals Vitals: Vital Signs - 24 hr 05/13/23 05/13/23 05/13/23 14:47 15:25 15:30 Temperature 36 C L 36.6 C Heart Rate 60 60 60 Respiratory 18 17 15 Rate Blood Pressure 108/57 L 97/50 L 88/76 L O2 Saturation 100 97 97 05/13/23 05/13/23 05/13/23 16:00 16:30 17:00 Temperature Heart Rate 60 60 Respiratory 17 13 Rate Blood Pressure 87/49 L 84/55 L 91/53 L O2 Saturation 97 98 05/13/23 18:00 Temperature Heart Rate 60 Respiratory 13 Rate Blood Pressure 98/74 O2 Saturation 98 Oxygen O2 Source Room air - EKG (time done) 1456 EKG releavant findings:: EKG personally interpreted by author of this note. Relevant findings are: Rate: Rate (enter#) (60) Rhythm: Atrial fibrillation, Paced - Labs Labs: Laboratory Tests 05/13/23 05/13/23 05/13/23 15:11 15:11 15:11 WBC 6.2 RBC 3.86 L Hgb 11.6 L Hct 36.6 L MCV 94.8 MCH 30.1 MCHC 31.7 L RDW 16.3 H Plt Count 198 MPV 11.2 H Neut # (Auto) 4.6 Lymph # (Auto) 1.1 L Dare # (Auto) 0.4 Eos # (Auto) 0.1 Baso # (Auto) 0.0 Absolute Nucleated RBC 0.00 Nucleated RBC % 0.0 PT 23.0 H INR 2.2 H Sodium 139 Potassium 4.2 Chloride 104 Carbon Dioxide 25 Anion Gap 10.0 BUN 37 H Creatinine 2.1 H Estimated GFR (MDRD) 23 L Glucose 142 H Calcium 9.3 Magnesium 2.0 Total Bilirubin 0.5 AST 18 ALT 10 Alkaline Phosphatase 37 L Troponin I High Sens Total Protein 6.8 Albumin 3.9 Globulin 2.9 Albumin/Globulin Ratio 1.3 Ethyl Alcohol 05/13/23 05/13/23 05/13/23 15:11 15:11 17:35 WBC RBC Hgb Hct MCV MCH MCHC RDW Plt Count MPV Neut # (Auto) Lymph # (Auto) Dare # (Auto) Eos # (Auto) Baso # (Auto) Absolute Nucleated RBC Nucleated RBC % PT INR Sodium Potassium Chloride Carbon Dioxide Anion Gap BUN Creatinine Estimated GFR (MDRD) Glucose Calcium Magnesium Total Bilirubin AST ALT Alkaline Phosphatase Troponin I High Sens 52.7 H* 45.9 H* Total Protein Albumin Globulin Albumin/Globulin Ratio Ethyl Alcohol < 10.0 - Rads (name of study) CT brain without contrast is unremarkable Relevant Findings:: Final report received, EMP independent interpretation of test CTA chest and abdomen showing cardiomegaly, tortuous ascending aortic aneurysm 4 cm and ectatic descending aorta 3.5 cm Relevant Findings:: Final report received, EMP independent interpretation of test PD Medical Decision Making - ED course ED course: 78-year-old presents with syncopal episode with associated abdominal and back pain. Given the constellation of findings a vascular issue is certainly considered and CT angiography of the chest and abdomen were ordered. She is mildly confused. CBC showing mild anemia, CMP demonstrating mild prerenal azotemia, her creatinine is higher than usual but she is usually around 1.5 give her take. I was able to access the pharmacy system and it looks like she takes: Carvedilol 6.25 mg 1-1/2 tablets twice daily Lisinopril 5 mg a day Nifedipine ER 30 mg a day Prednisone 2 mg a day Eliquis 5 mg twice daily Levothyroxine 100 mcg daily Rosuvastatin 5 mg daily She did receive 1 L of IV fluids here. Followed by a second as she was gievn IV contrast. Spoke with daughter by phone, Latricia Lee, . She is demented and lives alone with visiting caregivers. Counseled that they may need to come up with alternative living arrangements in the near future as she seems too demented to live alone. Telehealth consultation placed at 7:28 PM for observation given high risk syncope with dehydration/hypotension and BLANCA. She did have a mildly elevated troponin but this was stable over time so presume this represents is caused by her kidney failure. Departure - Departure Disposition: ED Place in Observation Clinical Impression: BLANCA (acute kidney injury), Elevated troponin, Ascending aorta dilatation Syncope Qualifiers: Syncope type: unspecified Qualified Code(s): R55 - Syncope and collapse Condition: Serious
[2023-05-13] MEDS ORDERED: ACETAMINOPHEN 500 MG TABLET PO STA (14:55)
[2023-05-13] MEDS ORDERED: SODIUM CHLORIDE 0.9% 1,000 ML IV STA ×2 (14:55→16:29)
[2023-05-13 15:19] LABS: BASOPHILS % (AUTO) 0.5 %; EOSINOPHILS # (AUTO) 0.1 10^3/uL (0.0-0.7); EOSINOPHILS % (AUTO) 1.3 %; HCT - HEMATOCRIT 36.6 % (37.0-47.0); HGB - HEMOGLOBIN 11.6 g/dL (12.0-16.0); LYMPHOCYTES # (AUTO) 1.1 10^3/uL (1.5-3.5); LYMPHOCYTES % (AUTO) 17.3 %; MEAN CORPUSCULAR HEMOGLOBIN 30.1 pg (27.0-31.0); MEAN CORPUSCULAR HGB CONC 31.7 g/dL (32.0-36.0); MEAN CORPUSCULAR VOLUME 94.8 fL (81.0-99.0); MEAN PLATELET VOLUME 11.2 fL (7.9-10.8); MONOCYTES # (AUTO) 0.4 10^3/uL (0.0-1.0); NEUTROPHILS # (AUTO) 4.6 10^3/uL (1.5-6.6); NEUTROPHILS % (AUTO) 74.6 %; PLT - PLATELET COUNT 198 10^3/uL (130-450); RED BLOOD COUNT 3.86 10^6/uL (4.20-5.40); RED CELL DISTRIBUTION WIDTH 16.3 % (12.0-15.0); WHITE BLOOD COUNT 6.2 x10^3/uL (4.8-10.8)
[2023-05-13 15:47] LABS: ALBUMIN 3.9 g/dL (3.2-5.5); ALBUMIN/GLOBULIN RATIO 1.3 (1.0-2.2); BILIRUBIN,TOTAL 0.5 mg/dL (0.2-1.0); CALCIUM 9.3 mg/dL (8.5-10.3); CREATININE 2.1 mg/dL (0.6-1.3); POTASSIUM 4.2 mmol/L (3.5-4.5); TOTAL PROTEIN 6.8 g/dL (6.4-8.9)
[2023-05-13 16:04] LABS: INR 2.2 (0.8-1.2)
[2023-05-13] MEDS ORDERED: iohexoL-300 100 ML VIAL ONE (16:35)
[2023-05-13] MEDS ORDERED: iohexoL-300 100 ML VIAL IVP ONE (17:47)
--- NOTE | 2023-05-13 18:38 | CT Report ---
PROCEDURE: Head WO INDICATIONS: Syncope confusion, severe back pain TECHNIQUE: Noncontrast 4.5 mm thick angled axial sections acquired from the foramen magnum to the vertex. For r adiation dose reduction, the following was used: automated exposure control, adjustment of mA and/or kV according to patient size. COMPARISON: 07/18/2022 FINDINGS: Image quality: There is streak artifact seen through the skull base. CSF spaces: Basal cisterns are patent. No extra-axial fluid collections. Ventricles are normal in size and shape. Brain: No midline shift. No intracranial masses or hemorrhage. Gallegos-white matter interface is norm al. Age-appropriate brain parenchymal volume loss and chronic small vessel ischemic change can be se en. Skull and face: Calvarium and visualized facial bones are intact, without suspicious lesions. Sinuses: Visualized sinuses and mastoids are clear. IMPRESSION: Intracranial study within normal limits for age. Reviewed by: Remi Schmidt MD on 05/13/2023 5:37 PM [place] Approved by: Remi Schmidt MD on 05/13/2023 5:37 PM [facility] Station ID: [id number]
--- NOTE | 2023-05-13 19:01 | CT Report ---
PROCEDURE: Angio Chest INDICATIONS: Syncope confusion, severe back pain CONTRAST: Omni 300 100ml TECHNIQUE: After the administration of intravenous contrast, 2 mm axial images were acquired from the pulmonary apices to the posterior costophrenic angles during the arterial phase. In addition, 1 mm lung kernel and 5 mm soft tissue kernel reconstructions were performed. 3-dimensional coronal oblique maximum int ensity projection (MIP) reformats, 8 mm axial MIP, and 5 mm coronal and sagittal MPR reformats were t hen performed through the thorax. For radiation dose reduction, the following was used: automated exp osure control, adjustment of mA and/or kV according to patient size. COMPARISON: None. FINDINGS: Image quality: Diagnostic. Large vessels: No evidence of aortic dissection. Aneurysmal dilatation of the ascending aorta measuri ng up to 4.0 cm. Main pulmonary artery is normal in caliber. Ectatic descending aorta measuring appro ximately 3.5 cm in caliber. Lungs and pleura: Bibasilar atelectasis. No pleural effusions. No pneumothorax. No suspicious pulmon gregg nodules which require follow up. Mediastinum: Heart size is enlarged. No pericardial effusion. No large vessel abnormality. No mediast inal adenopathy by size criteria. Coronary artery calcifications are present. Chest wall and lower neck: Thyroid is unremarkable. No axillary or supraclavicular adenopathy by size . AICD chest wall device with single cardiac lead. Bones: No acute or suspicious osseous abnormality. L2 level discogenic degeneration including vertebr al body height loss of the visualized thoracic and lumbar spine Upper Abdomen: These see separately dictated CT angiography abdomen and pelvis obtained concurrently. IMPRESSION: No evidence of aortic dissection. Cardiomegaly. Tortuous thoracic aorta with aneurysmal dilatation of the ascending aorta measuring up to 4.0 cm and ectatic descending aorta measuring up to 3.5 cm Reviewed by: Laura Delgado MD on 05/13/2023 7:00 PM PST Approved by: Laura Delgado MD on 05/13/2023 7:00 PM PST Station ID: [id number]
--- NOTE | 2023-05-13 19:04 | CT Report ---
PROCEDURE: Angio Abdomen/Pelvis INDICATIONS: Syncope confusion, severe back pain CONTRAST: Omni 300 100ml TECHNIQUE: After the administration of intravenous contrast, 2.5 mm thick sections acquired from the diaphragm t o the symphysis. 10 mm maximum-intensity projection (MIP) reformats were then acquired. For radiati on dose reduction, the following was used: automated exposure control, adjustment of mA and/or kV ac cording to patient size. COMPARISON: Same day CT chest Gwen Balbir FINDINGS: Image quality: Diagnostic. Aorta: Normal caliber abdominal aorta with mild calcified and noncalcified atherosclerotic calcifica tions. No evidence of aortic dissection. Mesenteric arteries: Celiac trunk, superior and inferior mesenteric arteries appear patent. Right pelvic arteries: Normal caliber without evidence of intraluminal filling defect or dissection. Left pelvic arteries: Normal caliber without evidence of intraluminal filling defect or dissection. Extravascular soft tissues: Please see separately dictated CT chest angiography for description of c hest findings. Limited evaluation of abdominal organs on this single arterial phase. Multiple centime ter hepatic hypodensities are visualized, which are too small to characterize, possible cysts versus hemangiomas. No acute osseous abnormality. There are multilevel degenerative changes of the visualized lumbar and thoracic spine. IMPRESSION: No evidence of aortic dissection or aneurysmal dilatation of the abdominal aorta. Please see separately dictated CT chest angiogram for additional findings. Reviewed by: Laura Delgado MD on 05/13/2023 7:02 PM PST Approved by: Laura Delgado MD on 05/13/2023 7:02 PM PST Station ID: [id number]
[2023-05-13] MEDS ORDERED: ONDANSETRON 4 MG/2 ML VIAL IVP PRN (20:29)
[2023-05-13] MEDS ORDERED: SODIUM CHLORIDE FLUSH 0.9% 10 ML SYRINGE IVP PRN (20:29)
[2023-05-13] MEDS ORDERED: ACETAMINOPHEN 325 MG TABLET PO PRN (20:29)
--- NOTE | 2023-05-13 20:42 | HISTORY & PHYSICAL EXAMINATION ---
Chief Complaint - Chief Complaint Chief Complaint: Syncope History of Present Illness - Admitted From Admitted From:: Home - History Obtained From Records Reviewed: Yes History obtained from: ER MD Exam Limitations: Video not working - History of Present Illness HPI Comment/Other: 78-year-old woman presents by ambulance after a syncopal episode. She is confused at this point and does not know her medical history, but a review of the chart shows she has A-fib, pacemaker, and we do not know what medications she is on. Most of the history is from EMS due to the confusion. She was having lunch with a friend and passed out for about 3 minutes. She was modestly hypotensive on scene in the range of 90/60. She states she has no history of syncope, but review of the chart shows Dr Ashby saw her about 10 months ago for syncopal episode. [facility]. ER MD spoke with daughter in ER Her only complaint is severe low back pain that started during all of this. 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: Endometriosis Psych: reports: None Musculoskeletal: reports: Osteoarthritis, Osteoporosis, Chronic back pain MRSA Hx?: No - Past Surgical History Cardiovascular: reports: Pacemaker - POLST Patient has POLST: No Meds/Allgy - Home Medications Home Medications: Ambulatory Orders Medication Instructions Recorded Confirmed Carvedilol 6.25 mg PO DAILY 04/02/15 04/02/15 Levothyroxine [Synthroid] 25 mcg PO QDAC 04/02/15 04/02/15 NIFEdipine [Nifedipine] 30 mg PO DAILY 04/02/15 04/02/15 lisinopriL [Lisinopril] 10 mg PO BID 04/02/15 04/02/15 predniSONE [Prednisone] 3 mg 04/02/15 04/02/15 Apixaban [Eliquis] 2.5 mg PO BID 05/13/23 05/13/23 Ezetimibe/Rosuvastatin Calcium 20 mg DAILY 05/13/23 05/13/23 [Rosuvastatin-Ezetimibe 20-10Mg] - Allergies Allergies/Adverse Reactions: Allergies Allergy/AdvReac Type Severity Reaction Status Date / Time diltiazem Allergy Unknown Unknown Verified 07/18/22 16:50 Review of Systems - Other Findings Other Findings: Unable to obtain due to dementia grossly moving all 4 ext Prior Level of Functionality: Lives alone with caregivers Exam - Vital Signs Vital Signs: Vital Signs x48h Temp Pulse Resp BP Pulse Ox 05/13/23 18:00 60 13 98/74 98 05/13/23 17:00 60 13 91/53 L 98 05/13/23 16:30 84/55 L 05/13/23 16:00 60 17 87/49 L 97 05/13/23 15:30 60 15 88/76 L 97 05/13/23 15:25 36.6 C 60 17 97/50 L 97 05/13/23 14:47 36 C L 60 18 108/57 L 100 - Physical Exam General Appearance: positive: No acute distress Eyes Bilateral: positive: Normal inspection Neck: positive: Thyroid nml, No JVD Respiratory: positive: Wheezes, Rales, Rhonchi Cardiovascular: positive: Irregularly irregular Abdomen: positive: Non-tender, Nml bowel sounds Extremities: positive: Non-tender, Full ROM Neurologic/Psychiatric: positive: Oriented x3 Sepsis Event Note (H) - Evaluation Current Stage of Sepsis: Ruled out Conclusion/Plan - Problem List (1) BLANCA (acute kidney injury) Conclusion/Plan: Gentle hydrataion Has baseline CKD Goal to improve perfusion pressure no nephrotioxic agents to be used (2) Ascending aorta dilatation Conclusion/Plan: Stable as oer CT studies Monitor for now (3) Elevated troponin Conclusion/Plan: Donwtrending no chest pain Hx of A ib Rate controlled and continue Eliquis (4) Syncope Conclusion/Plan: Gentle hydration Work up karmen had similar episode 10 mos ago Keep her self well hydrated Qualifiers: Syncope type: unspecified Qualified Code(s): R55 - Syncope and collapse (5) Dehydration Conclusion/Plan: Gentle hydration - Lab Results Fish Bones: 05/13/23 15:11 05/13/23 15:11 - Diagnostic Imaging Results Diagnostic Imaging Results: positive: Final report reviewed - EKG Results EKG Interpreted Independently: Yes EKG Comparison: Unchanged from prior EKG
[2023-05-13 22:31] LABS: BILIRUBIN,URINE NEGATIVE (NEGATIVE); GLUCOSE, URINE (UA) NEGATIVE (NEGATIVE); KETONES,URINE (UA) TRACE mg/dL (NEGATIVE); LEUKOCYTE ESTERASE, URINE NEGATIVE (NEGATIVE); NITRITE,URINE NEGATIVE (NEGATIVE); OCCULT BLOOD,URINE NEGATIVE (NEGATIVE); PROTEIN,URINE NEGATIVE (NEGATIVE); UROBILINOGEN,URINE 0.2 (NORMAL) E.U./dL (NORMAL)
[2023-05-13] MEDS: SODIUM CHLORIDE 0.9% 1,000 ML IV SCH (22:33)
[2023-05-13] MEDS: APIXABAN 2.5 MG TABLET PO SCH (22:33)
[2023-05-13 22:40] LABS: CLARITY,URINE CLEAR (CLEAR)
[2023-05-14] MEDS: SODIUM CHLORIDE FLUSH 0.9% 10 ML SYRINGE IVP SCH ×2 (00:52→08:32)
[2023-05-14 03:52] VITALS: BP 140/69; O2SAT 96
[2023-05-14 06:04] LABS: BASOPHILS % (AUTO) 0.5 %; EOSINOPHILS # (AUTO) 0.1 10^3/uL (0.0-0.7); EOSINOPHILS % (AUTO) 1.2 %; HCT - HEMATOCRIT 33.7 % (37.0-47.0); HGB - HEMOGLOBIN 10.7 g/dL (12.0-16.0); LYMPHOCYTES # (AUTO) 1.9 10^3/uL (1.5-3.5); LYMPHOCYTES % (AUTO) 29.3 %; MEAN CORPUSCULAR HGB CONC 31.8 g/dL (32.0-36.0); MEAN CORPUSCULAR VOLUME 94.4 fL (81.0-99.0); MEAN PLATELET VOLUME 11.3 fL (7.9-10.8); MONOCYTES # (AUTO) 0.6 10^3/uL (0.0-1.0); MONOCYTES % (AUTO) 9.2 %; NEUTROPHILS # (AUTO) 3.9 10^3/uL (1.5-6.6); NEUTROPHILS % (AUTO) 59.6 %; PLT - PLATELET COUNT 183 10^3/uL (130-450); RED BLOOD COUNT 3.57 10^6/uL (4.20-5.40); RED CELL DISTRIBUTION WIDTH 16.5 % (12.0-15.0); WHITE BLOOD COUNT 6.6 x10^3/uL (4.8-10.8)
[2023-05-14 06:20] LABS: CALCIUM 8.4 mg/dL (8.5-10.3); CREATININE 1.3 mg/dL (0.6-1.3)
[2023-05-14 06:40] LABS: THYROID STIMULATING HORMONE 45.54 uIU/mL (0.34-5.60)
[2023-05-14] MEDS ORDERED: LEVOTHYROXINE 25 MCG TABLET PO SCH (07:00)
[2023-05-14] MEDS ORDERED: LEVOTHYROXINE 100 MCG TABLET PO SCH (07:00)
[2023-05-14] MEDS: SODIUM CHLORIDE 0.9% 1,000 ML IV SCH (08:21)
[2023-05-14] MEDS: APIXABAN 2.5 MG TABLET PO SCH (08:32)
[2023-05-14] MEDS ORDERED: [UNRECOGNIZED DRUG - OTHER] PO SCH (09:00)
[2023-05-14] MEDS: POTASSIUM CHLOR 10 MEQ/100 ML 10 MEQ/100 ML BAG IV SCH ×3 (09:26→12:24)
--- NOTE | 2023-05-14 12:06 | PHARMACY PROGRESS NOTE ---
- Best Possible Medication History Admit Date and Time: 05/13/232029 Processed by: Pharmacy Medication History completed: Yes Patient Interview: Pt unable to participate Secondary Source(s): Insurance records As the person ultimately responsible for medication therapy, providers are able to order a medication from an existing home medication list in [facility] via the "Reconcile Routine" prior to Confirmation of that medication by data support specialist. Such practice is discouraged except when the physician, in their clinical judgment, deems that a medical need exists for a medication without regard to previous use.
--- NOTE | 2023-05-14 12:31 | Discharge Plan ---
Discharge Plan Problem Reviewed?: Yes Disposition: Home, Self Care Condition: Fair Diet: Regular Activity Restrictions: Activity as Tolerated Shower Restrictions: No Driving Restrictions: Yes (no driving) Assistance Devices: [facility] Concerns: This sarath lady has a history of high blood pressure, atrial fibrillation and sick sinus syndrome resulting in a pacemaker, Alzheimer's dementia and presents with syncope or fainting that was witnessed. A witnessed event is very important. If it is an unwitnessed event, we need to consider seizure disorder. But if someone sees her faint, and there is no seizure activity then we can rule that out. This is second episode of syncope that she has had. There are several causes that we ruled out. We think about intravascular depletion or dehydration from lack of good fluid intake, or loss of fluids from gastroenteritis, nausea and vomiting, diarrhea, internal bleeding. She may have some of that because she may be forgetting to eat or drink enough. She is on 3 blood pressure drugs including carvedilol, lisinopril, and nifedipine. If you combine those medications with someone who forgets to eat, your blood pressure will drop and you will faint. When she was first admitted her blood pressure was as low as 84/55. With IV fluids her blood pressure has come back up. We checked her blood test for heart attack, and although her troponins are a little high, blood test for muscle damage of the heart, they were 52 and 45 consecutively Those are not significant enough to say that she is having a heart attack. We monitored her heart rhythm with the pacemaker and she stayed in regular rhythm because of the pacemaker. So at no time did her heart slowed down that would cause her to pass out. However we are unable to interrogate the pacemaker battery. We thought about valvular heart disease causing someone to pass out. Valvular heart disease such as aortic stenosis Causes someone to pass out. She has had 2 echocardiograms with us, the most recent being 2019. There is no aortic stenosis on those echocardiogram so we did not repeat the echocardiogram. We thought about aortic dissection or aneurysm rupture and CT of the chest, abdomen and pelvis were all negative for aortic rupture. We thought about stroke and her head CT was negative. There is no urinary tract infection or pneumonia. In addition to the low blood pressure we did find her kidney function to be impacted. Her usual kidney function is 1.3-1.4. She was 2.1 on admission. She could be mildly dehydrated. She responded to IV fluids and creatinine is back to normal at 1.3 on the day of discharge. We did find that she has a very low hormone level. She is supposed to be taking 100 mcg of Synthroid. Because she has memory loss, she may be forgetting to take this pill. TSH was 45.54. Plan of Treatment: She should be seen by her primary care provider in the next 1 to 2 weeks with repeat BMP done to make sure her kidney function is staying normal. She has been seen by her cash application clerk and a recent pacer check showed her battery to be functioning well and possibly 3 years of battery life still left according to her son. Run this past the cash application clerk [employer] to make sure he is okay with not seeing her. Consider adjusting her blood pressure medicine in the face of low blood pressure. When someone takes this many blood pressure medicines and then they stand, they can lose consciousness because of not enough blood flow to the brain. Make sure that this patient takes her Synthroid every day at the current dose. If she is forgetting to take it, and that is why her thyroid hormone level is low, I do not want to increase her thyroid pill dose. However, if she takes her pill every day, blood work is checked in a month, and her thyroid hormone level is low, then you can increase her thyroid pill dose. Because of poor memory, the patient will be discharged to her [facility]'s care. He lives in [place]. He will make sure she gets plenty of p.o. intake over the next day or 2 before she returns to home. Care Goals: Advanced care planning for future needs of increasing memory loss. Assessment: patient is a delightful, alert lady with memory loss. Step-son and DPOA will be taking her home for a day or two with him. No Smoking: If you smoke, Please STOP! Call for help.
--- NOTE | 2023-05-14 19:24 | DISCHARGE SUMMARY ---
"Discharge Summary Admit Date: 05/13/23 Discharge Date: 05/14/23 Discharging Provider: Debra Gallegos MD Primary Care Provider: Sanjeev Coleman MD Code Status: Attempt Resuscitation Condition at Discharge: Fair Discharge Disposition: 01 Home, Self Care - DIAGNOSES Discharge Diagnoses with Status of Each Condition: 1. syncope 2. Acute kidney injury 3. Hypotension 4. Chronic atrial fibrillation 5. Dementia due to Alzheimer's disease 6. Hypothyroidism, moderately severe - HPI History of Present Illness: 78-year-old woman presents by ambulance after a syncopal episode. She is confused at this point and does not know her medical history, but a review of the chart shows she has A-fib, pacemaker, and we do not know what medications she is on. Most of the history is from EMS due to the confusion. She was having lunch with a friend and passed out for about 3 minutes. She was modestly hypotensive on scene in the range of 90/60. She states she has no history of syncope, but review of the chart shows Dr Ashby saw her about 10 months ago for syncopal episode. At that time patient was dc fromspital as her son picked her up. ER MD spoke with daughter in ER Her only complaint is severe low back pain that started during all of this. 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 She does have aneurysmal dilation of the ascending aorta measuring 4 cm. Ectatic ascending aorta 3.5 cm. Heart is enlarged without effusion. AICD chest wall device with a single cardiac lead in place. Thyroid unremarkable. Head CT without acute intracranial changes. TSH is 45.5. - HOSPITAL COURSE Hospital Course: Patient has had syncope in the last few months. She has had echocardiograms in the past that were negative for aortic stenosis. So I did not feel the need to repeat her echo. Telemetry overnight confirmed a paced rhythm. The only thing we are not able to confirm through interrogation is whether her battery life is adequate or not. Son assures me that mom had a check this year and that she has at least 3 more years of battery life left. We did find her to be severely hypothyroid. This may be contributing her to dementia and memory loss. What is not clear is whether she is taking her medication or not. If she is not taking her medications and that is why she is hypothyroid. Family should verify that she is taking it on a daily basis, then recheck in a month. Then if she is low, we can up her dose. I did not want her upper dose at this time without knowing for sure that she was compliant or noncompliant. She was dehydrated with elevated BUN and creatinine. Or she was prerenal azotemia from hypotension. She may be overly medicated with blood pressure medicine. All of these things were being considered. She responded to 2 L of IV fluid. Creatinine returned to normal. Blood pressure returned to normal. 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 She needs her battery interrogated, thyroid disease treated. Family is also going to look at future planning for her care since it is becoming clear that she probably cannot live by herself. She already has a caregiver that comes twice a week. Her son comes by once a week. She may end up needing daily care at this point. She is discharged in stable condition with a blood pressure of 140/69. Temperature 36.8. Heart rate 60. Respirations 18. 96% on room air. She is a 4 foot 9 inch elderly female. Absolutely sarath personality. Very forgetful but violently tries to participate in the conversation. Recognizes her stepson. She is 63 kg. Well-groomed, well-nourished. Neck is supple. Lungs are clear. Regular rate and rhythm. Abdomen is soft, nontender normal bowel sounds. On extremity exam I am not seeing any pretibial myxedema. But she does have delayed reflexes. Katerina will not be taking her home for the next couple of days. Bring her back to her home after that after making decisions about what her care should be. - ALLERGIES Allergies/Adverse Reactions: Allergies Allergy/AdvReac Type Severity Reaction Status Date / Time diltiazem Allergy Unknown Unknown Verified 07/18/22 16:50 - MEDICATIONS Home Medications: Ambulatory Orders Medication Instructions Recorded Confirmed Carvedilol 9.375 mg PO DAILY 04/02/15 05/14/23 Levothyroxine [Synthroid] 100 mcg PO QDAC 04/02/15 05/14/23 NIFEdipine [Nifedipine] 30 mg PO DAILY 04/02/15 05/14/23 lisinopriL [Lisinopril] 5 mg PO BID 04/02/15 05/14/23 predniSONE [Prednisone] 2 mg PO DAILY 04/02/15 05/14/23 Apixaban [Eliquis] 5 mg PO BID 05/13/23 05/14/23 Ezetimibe/Rosuvastatin Calcium 20 mg DAILY 05/13/23 05/13/23 [Rosuvastatin-Ezetimibe 20-10Mg] - LABS Result Diagrams: 05/14/23 05:30 05/14/23 05:30 - SEPSIS Current Stage of Sepsis: Ruled out"
[2023-05-14] MEDS ORDERED: APIXABAN 5 MG TABLET PO SCH (21:00)
== END 2023-05-14 13:18 | disposition home or self-care (01) ==
LOC: EDUNIT# → ED 14:41 → MS2 20:30
PROVIDERS: ADMIT Internal Medicine; ATTEND Specialist
DX: R55 Syncope and collapse (principal); N17.9 Acute kidney failure, unspecified; R79.89 Other specified abnormal findings of blood chemistry; E86.0 Dehydration; G30.9 Alzheimer's disease, unspecified; F02.80 Dementia in other diseases classified elsewhere, unspecified severity, without behavioral disturbance, psychotic disturbance, mood disturbance, and anxiety; I95.9 Hypotension, unspecified; I48.20 Chronic atrial fibrillation, unspecified; E03.9 Hypothyroidism, unspecified; I10 Essential (primary) hypertension; I71.21 Aneurysm of the ascending aorta, without rupture; Z95.810 Presence of automatic (implantable) cardiac defibrillator; D64.9 Anemia, unspecified; G89.29 Other chronic pain; I49.5 Sick sinus syndrome
CPT/HCPCS: 36415; 70450; 71275; 74174; 80048; 80053; 81003; 83735; 84443; 84484; 85025; 85610; 93005; 96361; 96365; 96366; 99285; A9270; G0378; G0480; Q9967; 80320; 81001; 87086

== ENCOUNTER 2023-10-21 09:16 | Outpatient (CLI) | payer MEDICARE, OTHER ==
[2023-10-21 09:36] LABS: HCT - HEMATOCRIT 39.6 % (37.0-47.0); MEAN CORPUSCULAR HEMOGLOBIN 27.8 pg (27.0-31.0); MEAN CORPUSCULAR HGB CONC 30.3 g/dL (32.0-36.0); MEAN CORPUSCULAR VOLUME 91.7 fL (81.0-99.0); MEAN PLATELET VOLUME 11.1 fL (7.9-10.8); RED BLOOD COUNT 4.32 10^6/uL (4.20-5.40); RED CELL DISTRIBUTION WIDTH 15.7 % (12.0-15.0); WHITE BLOOD COUNT 6.3 x10^3/uL (4.8-10.8)
[2023-10-21 09:47] LABS: ALBUMIN 4.2 g/dL (3.2-5.5); ALBUMIN/GLOBULIN RATIO 1.2 (1.0-2.2); ALKALINE PHOSPHATASE 40 IU/L (42-121); ALT ALANINE AMINOTRANSFERASE 11 IU/L (10-60); AST ASPARTATE AMINOTRANSFERASE 17 IU/L (10-42); BILIRUBIN,TOTAL 0.6 mg/dL (0.2-1.0); BUN - BLOOD UREA NITROGEN 30 mg/dL (6-20); CALCIUM 9.9 mg/dL (8.5-10.3); CARBON DIOXIDE - CO2 30 mmol/L (21-32); CHLORIDE 105 mmol/L (101-111); CHOL/HDL RATIO 2.2 (<4.4); CHOLESTEROL 163 mg/dL; CREATININE 1.4 mg/dL (0.6-1.3); GFR - MDRD 36 (>89); GLUCOSE 99 mg/dL (74-104); HDL CHOLESTEROL 73 mg/dL; LDL CHOLESTEROL,CALCULATED 73 mg/dL; POTASSIUM 3.4 mmol/L (3.5-4.5); SODIUM 140 mmol/L (135-145); TOTAL PROTEIN 7.6 g/dL (6.4-8.9); TRIGLYCERIDES 85 mg/dL (48-352); VLDL CHOLESTEROL 17 mg/dL
[2023-10-21 10:02] LABS: THYROID STIMULATING HORMONE 5.05 uIU/mL (0.34-5.60)
== END 2023-10-21 09:17 | disposition home or self-care (01) ==
LOC: LAB 09:16
PROVIDERS: ATTEND Internal Medicine Cardiovascular Disease
DX: E03.9 Hypothyroidism, unspecified (principal); I10 Essential (primary) hypertension; Z79.01 Long term (current) use of anticoagulants
CPT/HCPCS: 36415; 80053; 80061; 83721; 84443; 85027